=== PATIENT | female | born 1950 | race Two or more races ===

== ENCOUNTER → 2017-05-30 | Day surgery (SDC) | payer BC ==
--- NOTE | 2017-05-31 14:20 | PATH ---
Cytology Non-Gynecological Report Patient Name: KESHAV SMITH [facility]. Rec. #: [id number] /Age/Gender: 1950 (Age: 66) / F Account: [id number] Location: RADIOLOGY Taken: 05/30/2017 Received: 05/30/2017 Reported: 05/31/2017 Physicians: Shaneka Brumfield M.D. Specimen(s) Received RIGHT THYROID FNA Clinical History Right thyroid nodule, 1.91 x 1.10 x 1.09 cm Final Diagnosis THYROID GLAND, RIGHT LOBE, US GUIDED FINE NEEDLE ASPIRATION BIOPSY: SATISFACTORY FOR EVALUATION. NO MALIGNANT CELLS IDENTIFIED. CONSISTENT WITH NODULAR GOITER (BENIGN FOLLICULAR NODULE, BETHESDA CATEGOY II, BENIGN), SEE COMMENT. Comment: The smears and the cell block show scattered clusters of bland appearing follicular epithelial cells arranged in mixed macro- and microfollicles. Colloid is present. Electronically Signed Salo Rodriguez M.D. Gross Description Received are four air dried smears, four smears in 95% alcohol, and 20 cc of bloody fluid in formalin. Four diff-quik stained slides, four Pap stained slides and one cell block are made.
== END | disposition home or self-care (01) ==
LOC: JRADIR 08:40
PROVIDERS: ATTEND Internal Medicine Endocrinology, Diabetes & Metabolism
PROC: 0G9H3ZX Drainage of Right Thyroid Gland Lobe, Percutaneous Approach, Diagnostic (ICD-10-PCS; principal; 2017-05-30)
PROC: BG44ZZZ Ultrasonography of Thyroid Gland (ICD-10-PCS; 2017-05-30)
DX: E04.1 Nontoxic single thyroid nodule (principal)
CPT/HCPCS: 76942; 88173; 88305-TC

== ENCOUNTER 2018-12-29 19:28 | Emergency (ER) | payer BC ==
[2018-12-29] MEDS ORDERED: ACETAMINOPHEN 1000 MG/100 ML VIAL (NON FORMULARY) IVPB ONE (20:12)
[2018-12-29] MEDS ORDERED: ACETAMINOPHEN INJECTION 100 ML IVPB ONE (20:29)
[2018-12-29] MEDS ORDERED: SODIUM CHLORIDE 1,000 ML IV STA (20:37)
[2018-12-29 20:49] LABS: BASO % 0.7 % (0-2.0); EOS % 1.5 % (0-4.5); HEMATOCRIT 42.7 % (32.4-45.2); HEMOGLOBIN 14.7 GM/dL (10.7-15.3); LYMPH % 15.7 % (8-40); MCH 32.3 pg (25.7-33.7); MCHC 34.5 g/dl (32.0-36.0); MEAN CELL VOLUME 93.6 fl (80-96); MEAN PLT VOLUME 8.7 fl (7.5-11.1); MONO % 11.8 % (3.8-10.2); NEUT % 70.3 % (42.8-82.8); PLATELET COUNT 338 K/MM3 (134-434); RBC 4.56 M/mm3 (3.60-5.2); RDW 12.8 % (11.6-15.6); WHITE BLOOD COUNT 9.2 K/mm3 (4.0-10.0)
[2018-12-29] MEDS ORDERED: ONDANSETRON 4 MG/2 ML VIAL IVPB ONE (20:51)
[2018-12-29] MEDS ORDERED: morphine CARPU-JECT 4 MG/1 ML DISP.SYRIN IVPUSH ONE (20:51)
--- NOTE | 2018-12-29 20:56 | PDOC ---
Attending Attestation - [facility] HPI: 12/29/18 21:08 The patient is a 68 year old female, with significant past medical history of asthma, hysterectomy, partial thyroidectomy, who presents to the emergency department with left lower quadrant pain beginning this morning. The patient states this is the first time she experienced this pain prompting the ED visit. The patient denies chest pain, shortness of breath, headache and dizziness. Denies fever, chills, nausea, vomit, diarrhea and constipation. Denies dysuria, frequency, urgency and hematuria. Allergies: NKA Documentation prepared by James Diane, acting as bilingual medical receptionist for Antonio Cloud MD. - Physicial Exam PE: 12/29/18 21:08 GENERAL: Awake, alert, and fully oriented, in no acute distress HEAD: No signs of trauma EYES: PERRLA, EOMI, sclera anicteric, conjunctiva clear ENT: Auricles normal inspection, hearing grossly normal, nares patent, oropharynx clear without exudates. Moist mucosa NECK: Normal ROM, supple, no lymphadenopathy, JVD, or masses ABDOMEN: (+) Tenderness to palpation left lower quadrant. No rebound or guarding. Soft, normoactive bowel sounds. No masses EXTREMITIES: Normal range of motion, no edema. No clubbing or cyanosis. No cords, erythema, or tenderness NEUROLOGICAL: Cranial nerves II through XII intact. Normal speech. SKIN: Warm, Dry, normal turgor, no rashes or lesions noted. <James Diane - Last Filed: 12/29/18 21:07> - Resident Resident Name: Wendi Nicole - ED Attending Attestation I have performed the following: I have examined & evaluated the patient, The case was reviewed & discussed with the resident, I agree w/resident's findings & plan, Exceptions are as noted - Medical Decision Making 12/29/18 20:56 A portion of this note was documented by scribe services under my direction. I have reviewed the details of the note, within reason, and agree with the documentation with the following case summary and management plan written by me. Patient treated in the ED. Nursing notes are reviewed and incorporated into the medical decision-making. Vital signs reviewed. Peripheral IV access obtained by the nurse, laboratory studies are drawn and sent, reviewed and interpreted by myself. Vital Signs Temp Pulse Resp BP Pulse Ox 99 F 97 H 18 137/89 98 12/29/18 19:28 12/29/18 19:28 12/29/18 19:28 12/29/18 19:28 12/29/18 19:28 68 year old female with past medical history of asthma, hysterectomy, partial thyroidectomy presents with left lower quadrant pain since this morning. Patient denies fevers or chills. No nausea or vomiting or diarrhea or dysuria. First-time episode. Patient denies prior history of diverticulitis. We'll need to rule out diverticulitis, colitis. We'll obtain labs, urinalysis, CAT scan and pelvis. r/o Cystitis. Reassess. 12/29/18 23:05 CBC, BMP 12/29/18 20:22 12/29/18 20:22 CMP Sodium 141 mmol/L (136-145) 12/29/18 20:22 Potassium 4.2 mmol/L (3.5-5.1) 12/29/18 20:22 Chloride 105 mmol/L (98-107) 12/29/18 20:22 Carbon Dioxide 32 mmol/L (21-32) 12/29/18 20:22 Anion Gap 5 MMOL/L (8-16) L 12/29/18 20:22 BUN 12 mg/dL (7-18) 12/29/18 20:22 Creatinine 0.5 mg/dL (0.55-1.3) L 12/29/18 20:22 Creat Clearance w eGFR > 60 (>60) 12/29/18 20:22 Random Glucose 97 mg/dL (74-106) 12/29/18 20:22 Lactic Acid 1.3 mmol/L (0.4-2.0) 12/29/18 20:22 Calcium 8.6 mg/dL (8.5-10.1) 12/29/18 20:22 Total Bilirubin 0.4 mg/dL (0.2-1) 12/29/18 20:22 AST 23 U/L (15-37) 12/29/18 20:22 ALT 25 U/L (13-61) 12/29/18 20:22 Alkaline Phosphatase 94 U/L (45-117) 12/29/18 20:22 Total Protein 7.4 g/dl (6.4-8.2) 03/01/19 20:22 Albumin 3.4 g/dl (3.4-5.0) 12/29/18 20:22 Lipase 101 U/L (73-393) 12/29/18 20:22 Urine Test Results Urine Color Ltyellow 12/29/18 18:50 Urine Appearance Clear 12/29/18 18:50 Urine pH 9.0 (5.0-8.0) H 12/29/18 18:50 Ur Specific [place] 1.016 (1.010-1.035) 12/29/18 18:50 Urine Protein Negative (NEGATIVE) 12/29/18 18:50 Urine Glucose (UA) Negative (NEGATIVE) 12/29/18 18:50 Urine Ketones Negative (NEGATIVE) 12/29/18 18:50 Urine Blood Negative (NEGATIVE) 12/29/18 18:50 Urine Nitrite Negative (NEGATIVE) 12/29/18 18:50 Urine Bilirubin Negative (<2.0 mg/dL) 12/29/18 18:50 Ur Leukocyte Esterase Negative (NEGATIVE) 12/29/18 18:50 CT shows uncomplicated acute diverticulitis. Will d/c with cipro and flagyl. <Antonio Cloud - Last Filed: 12/29/18 23:06>
[2018-12-29] MEDS ORDERED: ONDANSETRON 4 MG/2 ML VIAL ONE (21:07)
[2018-12-29] MEDS ORDERED: morphine SULFATE 4 MG/ML VIAL ONE (21:07)
[2018-12-29 21:09] LABS: URINE APPEARANCE CLEAR; URINE BILIRUBIN NEGATIVE (<2.0 mg/dL); URINE COLOR LTYELLOW; URINE GLUCOSE (UA) NEGATIVE (NEGATIVE); URINE KETONE NEGATIVE (NEGATIVE); URINE LEUK ESTERASE NEGATIVE (NEGATIVE); URINE NITRITE NEGATIVE (NEGATIVE); URINE PROTEIN NEGATIVE (NEGATIVE); URINE UROBILINOGEN NEGATIVE mg/dL (0.2-1.0)
[2018-12-29 21:19] LABS: ALBUMIN 3.4 g/dl (3.4-5.0); ALK PHOS 94 U/L (45-117); ANION GAP 5 MMOL/L (8-16); BILIRUBIN,TOTAL 0.4 mg/dL (0.2-1); BLOOD UREA NITROGEN 12 mg/dL (7-18); CALCIUM 8.6 mg/dL (8.5-10.1); CHLORIDE 105 mmol/L (98-107); CO2 32 mmol/L (21-32); CREATININE 0.5 mg/dL (0.55-1.3); GLUCOSE,RANDOM 97 mg/dL (74-106); POTASSIUM 4.2 mmol/L (3.5-5.1); SGOT/AST 23 U/L (15-37); SGPT/ALT 25 U/L (13-61); SODIUM 141 mmol/L (136-145); TOT PROT 7.4 g/dl (6.4-8.2)
[2018-12-29 21:40] VITALS: BP 137/89; PULSE 97; TEMP 99; BMI 30.1
--- NOTE | 2018-12-29 21:45 | PDOC ---
History of Present Illness - General Chief Complaint: Pain, Acute Stated Complaint: ABDOMINAL PAIN Time Seen by Provider: 12/29/18 19:56 History Source: Patient Exam Limitations: Language Barrier - History of Present Illness Initial Comments: 12/29/18 21:36 Pt is a 68yo F with PMH of Asthma, Uterine Fibroids s/p Hysterectomy "many years ago", Partial Thyroidectomy presenting to ED with LLQ abdominal pain that started this morning. Pt states that she had the pain and needed to have a bowel movement. The pain worsened while she was having a BM. She states the pain is on the left side, does not radiate, feels like pressure, associated with nausea and chills. She denies diarrhea, bloody stools, vomiting, chest pain , SOB, fevers, urinary symptoms. Has not had pain like this before. PMD: Lissette PMH: see hpi PSH: see hpi Meds: none Allergies: nkda Social: denies Past History - Past Medical History Allergies/Adverse Reactions: Allergies Allergy/AdvReac Type Severity Reaction Status Date / Time No Known Allergies Allergy Verified 12/29/18 19:51 Home Medications: Ambulatory Orders Ciprofloxacin [Cipro (Restricted To Id)] 500 mg PO Q12H #14 tablet 12/29/18 metroNIDAZOLE [Flagyl -] 500 mg PO TID #21 tablet 12/29/18 Asthma: Yes COPD: No - Immunization History Td Vaccination: Yes Immunization Up to Date: Yes - Suicide/Smoking/Psychosocial Hx Smoking Status: No Smoking History: Never smoked Have you smoked in the past 12 months: No Number of Cigarettes Smoked Daily: 0 Information on smoking cessation initiated: No Hx Alcohol Use: No Drug/Substance Use Hx: No Substance Use Type: None *Physical Exam - Vital Signs Last Vital Signs Temp Pulse Resp BP Pulse Ox 99 F 97 H 18 137/89 98 12/29/18 19:28 12/29/18 19:28 12/29/18 19:28 12/29/18 19:28 12/29/18 19:28 Moderate Sedation - Procedure Monitoring Vital Signs: Procedure Monitoring Vital Signs Temperature 99 F 12/29/18 19:28 Pulse Rate 97 H 12/29/18 19:28 Respiratory Rate 18 12/29/18 19:28 Blood Pressure 137/89 12/29/18 19:28 O2 Sat by Pulse Oximetry (%) 98 12/29/18 19:28 ED Treatment Course - LABORATORY CBC & Chemistry Diagram: 12/29/18 20:22 12/29/18 20:22 - ADDITIONAL ORDERS Additional order review: Laboratory Results 12/29/18 12/29/18 12/29/18 20:22 20:22 18:50 Sodium 141 Potassium 4.2 Chloride 105 Carbon Dioxide 32 Anion Gap 5 L BUN 12 Creatinine 0.5 L Creat Clearance w eGFR > 60 Random Glucose 97 Calcium 8.6 Total Bilirubin 0.4 AST 23 ALT 25 Alkaline Phosphatase 94 Total Protein 7.4 Albumin 3.4 Lipase 101 Urine Color Ltyellow Urine Appearance Clear Urine pH 9.0 H Ur Specific [place] 1.016 Urine Protein Negative Urine Glucose (UA) Negative Urine Ketones Negative Urine Blood Negative Urine Nitrite Negative Urine Bilirubin Negative Urine Urobilinogen Negative Ur Leukocyte Esterase Negative 12/29/18 20:22 RBC 4.56 MCV 93.6 MCHC 34.5 RDW 12.8 MPV 8.7 Neutrophils % 70.3 D Lymphocytes % 15.7 D Monocytes % 11.8 H D Eosinophils % 1.5 D Basophils % 0.7 D - RADIOLOGY Radiology Studies Ordered: Category Date Time Status ABDOMEN & PELVIS CT WITH CONTR [CT] Stat CT Scan 12/29/18 21:17 Ordered - Medications Given in the ED: ED Medications Discontinued Medications Generic Name Dose Route Start Last Admin Trade Name Darin PRN Reason Stop Dose Admin Acetaminophen 1,000 mg 12/29/18 20:12 12/29/18 20:34 Ofirmev Injection - IVPB 12/29/18 20:13 1,000 mg ONCE ONE Administration Sodium Chloride 1,000 mls @ 1,000 mls/hr 12/29/18 20:37 12/29/18 20:50 Normal Saline - IV 12/29/18 21:36 1,000 mls/hr ASDIR STA Administration Morphine Sulfate 4 mg 12/29/18 20:51 12/29/18 21:12 Morphine Injection - IVPUSH 12/29/18 20:52 4 mg ONCE ONE Administration Ondansetron HCl 4 mg 12/29/18 20:51 12/29/18 21:12 Zofran Injection IVPB 12/29/18 20:52 4 mg ONCE ONE Administration Medical Decision Making - Medical Decision Making 12/29/18 21:45 Pt is a 68yo F with PMH of Asthma, Uterine Fibroids s/p Hysterectomy "many years ago", Partial Thyroidectomy presenting to ED with LLQ abdominal pain that started this morning. Pt states that she had the pain and needed to have a bowel movement. The pain worsened while she was having a BM. She states the pain is on the left side, does not radiate, feels like pressure, associated with nausea and chills. She denies diarrhea, bloody stools, vomiting, chest pain , SOB, fevers, urinary symptoms. Has not had pain like this before. Vitals: wnl PE: LLQ tenderness, no rebound, negative rosving. No flank pain. No masses. Ddx includes but not limited to diverticulitis, sbo, incarcerated hernia, AAA, nephrolithiasis, UTI *DC/Admit/Observation/Transfer Diagnosis at time of Disposition: Diverticulitis - Discharge Dispostion Disposition: HOME Condition at time of disposition: Improved - Prescriptions Prescriptions: Ciprofloxacin [Cipro (Restricted To Id)] 500 mg PO Q12H #14 tablet metroNIDAZOLE [Flagyl -] 500 mg PO TID #21 tablet - Referrals Referrals: Clarence Villeda MD [Primary Care Provider] - Mal Bhatti MD [Staff Physician] - - Patient Instructions Printed Discharge Instructions: DI for Diverticulitis Additional Instructions: You were seen in the emergency room today for abdominal pain. The blood tests were normal. The CT scan showed an infection in part of your colon. This is called diverticulitis. The treatment is to take antibiotics. A dose was given to you here. Two prescriptions were sent to your pharmacy. Please take as directed. Make sure you drink clear fluids. Make sure you keep yourself well hydrated. You can take Tylenol or ibuprofen for the pain as needed. I recommend that you make an appointment with your doctor next week, preferably on Tuesday. I also recommend seeing a GI doctor. Dr. Bhatti . Come back to the emergency room if pain gets worse, there is blood in the stool , you develop fevers, you start vomiting, or if any new concerning symptom develops. Thank you - Post Discharge Activity
[2018-12-29] MEDS ORDERED: CIPROFLOXACIN 500 MG TABLET (RESTRICTED TO ID) PO ONE (23:05)
[2018-12-29] MEDS ORDERED: metroNIDAZOLE 500 MG TABLET PO ONE (23:05)
--- NOTE | 2019-01-02 13:58 | EKG ---
Test Reason : Blood Pressure : / mmHG Vent. Rate : 089 BPM Atrial Rate : 089 BPM P-R Int : 140 ms QRS Dur : 116 ms QT Int : 400 ms P-R-T Axes : 063 -33 018 degrees QTc Int : 486 ms NORMAL SINUS RHYTHM LEFT AXIS DEVIATION LEFT VENTRICULAR HYPERTROPHY WITH QRS WIDENING T WAVE ABNORMALITY, CONSIDER ANTERIOR ISCHEMIA ABNORMAL ECG WHEN COMPARED WITH ECG OF 19-NOV-2012 10:44, RIGHT BUNDLE BRANCH BLOCK IS NO LONGER PRESENT Confirmed by MD Allen, Fredy ([id number]) on 01/02/2019 1:57:40 PM Referred By: Confirmed By:Fredy Villa MD
== END 2018-12-30 00:07 | disposition home or self-care (01) ==
LOC: JER 19:28
PROC: 3E0337Z Introduction of Electrolytic and Water Balance Substance into Peripheral Vein, Percutaneous Approach (ICD-10-PCS; principal; 2018-12-29)
PROC: 3E033NZ Introduction of Analgesics, Hypnotics, Sedatives into Peripheral Vein, Percutaneous Approach (ICD-10-PCS; 2018-12-29)
PROC: 3E033NZ Introduction of Analgesics, Hypnotics, Sedatives into Peripheral Vein, Percutaneous Approach (ICD-10-PCS; 2018-12-29)
PROC: 3E033GC Introduction of Other Therapeutic Substance into Peripheral Vein, Percutaneous Approach (ICD-10-PCS; 2018-12-29)
DX: K57.92 Diverticulitis of intestine, part unspecified, without perforation or abscess without bleeding (principal); Z87.09 Personal history of other diseases of the respiratory system; Z87.42 Personal history of other diseases of the female genital tract; E89.0 Postprocedural hypothyroidism
CPT/HCPCS: 36415; 74177-TC; 80053; 81003; 83605; 83690; 85025; 93005; 93010; 99284-25; J0131; J7030

== ENCOUNTER 2019-01-01 11:31 | Inpatient (IN) | payer BC ==
--- NOTE | 2019-01-01 12:08 | PDOC ---
History of Present Illness - General Chief Complaint: Pain, Acute Stated Complaint: LOWER BACK PAIN Time Seen by Provider: 01/01/19 12:07 - History of Present Illness Initial Comments: 01/01/19 12:07 Malaysian speaking only pt. Sole Dyer [id number] used during history taking. 68 yo female with PMH asthma, fibroids s/p hysterectomy many years back, partial thyroidectomy, presents with worsening LLQ pain following recent visit and dx of diverticulitis. She was seen by Dr. Bhatti as an outpatient who sent her to the emergency room for further evaluation with noncontrast CT Abdomen/ Pelvis to evaluate for possible perforation with worsening pain on outpatient antibiotics. He also recommended admission for IV Rocephin and Flagyl. She endorses a lot of chills recently. States she feels constipated. She does endorse one small hard bowel movement this morning. Denies any blood in her stool. Endorses nausea, however she denies any vomiting. Past History - Past Medical History Allergies/Adverse Reactions: Allergies Allergy/AdvReac Type Severity Reaction Status Date / Time No Known Allergies Allergy Verified 01/01/19 12:33 Home Medications: Ambulatory Orders Ciprofloxacin [Cipro (Restricted To Id)] 500 mg PO Q12H #14 tablet 12/29/18 metroNIDAZOLE [Flagyl -] 500 mg PO TID #21 tablet 12/29/18 Pantoprazole Sodium [Protonix -] 40 mg PO DAILY 01/01/19 Asthma: Yes COPD: No GI Disorders: Yes (DIVERTICULOSIS) - Immunization History Td Vaccination: Yes Immunization Up to Date: Yes - Suicide/Smoking/Psychosocial Hx Smoking Status: No Smoking History: Never smoked Have you smoked in the past 12 months: No Number of Cigarettes Smoked Daily: 0 Information on smoking cessation initiated: No Hx Alcohol Use: No Drug/Substance Use Hx: No Substance Use Type: None Review of Systems - Review of Systems Able to Perform ROS?: Yes Constitutional: Yes: Chills HEENTM: No: Blurred Vision Respiratory: No: Cough, Shortness of Breath Cardiac (ROS): No: Chest Pain ABD/GI: Yes: Abd. Pain w/ defecation, Constipated, Nausea. No: Blood Streaked Bowels, Diarrhea, Rectal Bleeding, Vomiting : No: Burning, Dysuria Musculoskeletal: No: Back Pain, Joint Pain *Physical Exam - Vital Signs Last Vital Signs Temp Pulse Resp BP Pulse Ox 98.1 F 75 18 146/86 96 01/01/19 11:37 01/01/19 11:37 01/01/19 11:37 01/01/19 11:37 01/01/19 11:37 - Physical Exam Comments: 01/01/19 12:07 GEN: A&O, mild acute distress likely secondary to pain HEENT: PERRL NECK: supple, no lymphadenopathy HEART: RRR, no murmurs LUNGS: CTA b/l ABDOMEN: Soft, significant tenderness located in the LLQ. Normoactive bowel sounds EXTREMITIES: no peripheral edema Moderate Sedation - Procedure Monitoring Vital Signs: Procedure Monitoring Vital Signs Temperature 98.1 F 01/01/19 11:37 Pulse Rate 75 01/01/19 11:37 Respiratory Rate 18 01/01/19 11:37 Blood Pressure 146/86 01/01/19 11:37 O2 Sat by Pulse Oximetry (%) 96 01/01/19 11:37 ED Treatment Course - LABORATORY CBC & Chemistry Diagram: 01/01/19 12:58 01/01/19 12:27 Medical Decision Making - Medical Decision Making 01/01/19 12:36 68 yo female with recent diverticulitis dx failed outpatient treatment with Abx. Followed up with GI who recommended returning to the ER for worsening clinical exam/pain. Case discussed by other ED provider. GI recommends noncontrast CT scan Abdomen and Admission for IV Rocephin and Flagyl. CBC, CMP pending IV insert, 1L LR bolus, [address] abd/pelv noncontrast to r/o perforation. Will reassess following morphine and fluid bolus 01/01/19 15:02 CBC, CMP wnl Pain improved with 4 mg Morphine however patient still complaining of significant pain and some nausea. CT Abd/Pelv with no significant change other than 2 cm x 0.3 cm tubular shaped density in the upper rectum. Will give Zofran for nausea, Mag Citrate for constipation, and IV tylenol for continued pain Will place call to discuss possibility of admission as patient still having significant pain following 3 days PO Abx outpatient. *DC/Admit/Observation/Transfer Diagnosis at time of Disposition: Diverticulitis - Discharge Dispostion Condition at time of disposition: Stable Decision to Admit order: Yes - Referrals Referrals: Clarence Villeda MD [Staff Physician] - - Patient Instructions - Post Discharge Activity
[2019-01-01] MEDS ORDERED: morphine CARPU-JECT 4 MG/1 ML DISP.SYRIN IVPUSH ONE (12:28)
[2019-01-01] MEDS ORDERED: LACTATED RINGERS SOLUTION 1000 ML INFUS.BAG IV ONE (12:28)
[2019-01-01] MEDS ORDERED: morphine SULFATE 4 MG/ML VIAL ONE (12:36)
--- NOTE | 2019-01-01 12:44 | PDOC ---
Attending Attestation - Resident Resident Name: Issa Sams - ED Attending Attestation I have performed the following: I have examined & evaluated the patient, The case was reviewed & discussed with the resident, I agree w/resident's findings & plan, Exceptions are as noted - HPI HPI: 01/01/19 12:43 68y F hx of recently dx of diverticultiis dx in the ER 2 days ago, had a ct c/w diverticulitis was started on abx and plan was for outpatient treatment with GI fu. Pt went to fu with GI today and was referred back to the ED for evaluation for worsening abdmoinal pain for reevaluation, ivabx and repeat ct with concern for perforation vs abcess. Pt note the pain feels more severe, associated with subjective chills without fever, as well as nausea w/o vomiting. pt notes some constipation. denies any cp, sob, back pain, urinary sypmtoms pt has been complaint with her abx - Physicial Exam PE: 01/01/19 14:00 General: no acuted istress LUNGS: Breath sounds equal, clear to auscultation bilaterally. No wheezes, no rhonchi, no rales. HEART: Regular rate and rhythm, normal S1 and S2 without murmur, rub or gallop. ABDOMEN: Soft, moderate LLQ tenderness,voluntary guarding, no rebound EXTREMITIES: Normal range of motion, NEUROLOGICAL: No facial assymetry, Normal speech, moving all 4 extremities spontaneously and symmetrically PSYCH: Normal mood, normal affect. SKIN: Warm, Dry, normal turgor, - Medical Decision Making 01/01/19 14:01 will obtain repeat lab work repeat ct to eval for compliations of diverticulitis morphine for pain zofran for nausea 01/01/19 14:47 The patient's labs were reviewed there is no significant change in her white count. The patient's CT of abdomen reveals no significant changes, there is a questionable foreign body was not seen prior. Heart Score/ECG Review - ECG Impressions Comment:: 01/01/19 14:02 Twelve-lead EKG was performed and reviewed by me. There is normal sinus rhythm with a normal rate. Rate of 67 Right Bundle-branch block No ST changes suggestive of acute ischemia
[2019-01-01 13:17] LABS: EOS % 1.8 % (0-4.5); HEMATOCRIT 45.6 % (32.4-45.2); HEMOGLOBIN 15.7 GM/dL (10.7-15.3); MCH 32.3 pg (25.7-33.7); MCHC 34.5 g/dl (32.0-36.0); MEAN CELL VOLUME 93.7 fl (80-96); MEAN PLT VOLUME 8.7 fl (7.5-11.1); MONO % 17.3 % (3.8-10.2); NEUT % 56.9 % (42.8-82.8); PLATELET COUNT 432 K/MM3 (134-434); RBC 4.86 M/mm3 (3.60-5.2); RDW 12.7 % (11.6-15.6); WHITE BLOOD COUNT 6.3 K/mm3 (4.0-10.0)
[2019-01-01 13:57] LABS: ALBUMIN 3.2 g/dl (3.4-5.0); ALK PHOS 78 U/L (45-117); ANION GAP 6 MMOL/L (8-16); BILIRUBIN,TOTAL 0.3 mg/dL (0.2-1); BLOOD UREA NITROGEN 12 mg/dL (7-18); CALCIUM 8.9 mg/dL (8.5-10.1); CHLORIDE 102 mmol/L (98-107); CO2 32 mmol/L (21-32); CREATININE 0.9 mg/dL (0.55-1.3); GLUCOSE,RANDOM 77 mg/dL (74-106); POTASSIUM 4.1 mmol/L (3.5-5.1); SGOT/AST 24 U/L (15-37); SGPT/ALT 31 U/L (13-61); SODIUM 140 mmol/L (136-145); TOT PROT 8.2 g/dl (6.4-8.2)
[2019-01-01 14:06] LABS: INR 1.03 (0.83-1.09); PROTHROMBIN TIME (PATIENT) 12.2 SEC (9.7-13.0)
[2019-01-01] MEDS ORDERED: ONDANSETRON 4 MG/2 ML VIAL IVPUSH ONE (14:50)
[2019-01-01] MEDS ORDERED: MAGNESIUM CITRATE 300 ML BOTTLE PO ONE (14:51)
[2019-01-01] MEDS ORDERED: ACETAMINOPHEN 1000 MG/100 ML VIAL (NON FORMULARY) IVPB ONE (14:54)
[2019-01-01] MEDS ORDERED: ACETAMINOPHEN INJECTION 100 ML IVPB ONE (15:00)
[2019-01-01] MEDS ORDERED: ONDANSETRON 4 MG/2 ML VIAL ONE (15:00)
[2019-01-01] MEDS ORDERED: MAGNESIUM CITRATE 300 ML BOTTLE ONE (15:00)
[2019-01-01] MEDS ORDERED: CEFTRIAXONE 1,000 MG in DEXTROSE 5%-WATER - 50 ML IVPB ONE (15:17)
[2019-01-01] MEDS ORDERED: CEFTRIAXONE 1 GM/50 ML BAG ONE (15:34)
--- NOTE | 2019-01-01 15:39 | HP ---
Admitting History and Physical - Primary Care Physician PCP: Denisse Mclaughlin - Admission Chief Complaint: came in for abdominal pain sent in by dr alvarez History of Present Illness: 68 yo female with PMH asthma, fibroids s/p hysterectomy many years back, partial thyroidectomy, presents with worsening LLQ pain following recent visit and dx of diverticulitis. She was seen by Dr. Alvarez as an outpatient who sent her to the emergency room for further evaluation with noncontrast CT Abdomen/ Pelvis to evaluate for possible perforation with worsening pain on outpatient antibiotics. He also recommended admission for IV Rocephin and Flagyl. She endorses a lot of chills recently. States she feels constipated. She does endorse one small hard bowel movement this morning. Denies any blood in her stool. Endorses nausea, however she denies any vomiting. patient has been taking cipro and flagyl at home was given by ER when she came a few days ago for similar complains History Source: Medical Record Limitations to Obtaining History: Language Barrier - Smoking History Smoking history: Never smoked Have you smoked in the past 12 months: No Aproximately how many cigarettes per day: 0 - Alcohol/Substance Use Hx Alcohol Use: No Home Medications - Allergies Allergies/Adverse Reactions: Allergies Allergy/AdvReac Type Severity Reaction Status Date / Time No Known Allergies Allergy Verified 01/01/19 12:33 - Home Medications Home Medications: Ambulatory Orders Ciprofloxacin [Cipro (Restricted To Id)] 500 mg PO Q12H #14 tablet 12/29/18 metroNIDAZOLE [Flagyl -] 500 mg PO TID #21 tablet 12/29/18 Pantoprazole Sodium [Protonix -] 40 mg PO DAILY 01/01/19 Review of Systems - Review of Systems Gastrointestinal: reports: Abdominal Pain Physical Examination Vital Signs: Vital Signs Temperature 98.1 F 01/01/19 12:11 Pulse Rate 75 01/01/19 12:11 Respiratory Rate 18 01/01/19 12:11 Blood Pressure 146/86 01/01/19 12:11 O2 Sat by Pulse Oximetry (%) 96 01/01/19 12:11 Constitutional: Yes: Calm Cardiovascular: Yes: Regular Rate and Rhythm, S1, S2 Respiratory: Yes: CTA Bilaterally Gastrointestinal: Yes: Tenderness (in LLQ) Edema: No Neurological: Yes: Alert Labs: CBC, BMP 01/01/19 12:58 01/01/19 12:27 Imaging - Results Cat Scan: Report Reviewed (acute uncomplicated sigmoid diverticulitis) Problem List - Problems (1) Diverticulitis Assessment/Plan: NPO ivf morphine zofran iv abx rocephin flagyl GI consult dvtppx Code(s): K57.92 - DVTRCLI OF INTEST, PART UNSP, W/O PERF OR ABSCESS W/O BLEED
[2019-01-01] MEDS ORDERED: ONDANSETRON 4 MG/2 ML VIAL IVPUSH PRN (15:42)
[2019-01-01] MEDS ORDERED: MORPHINE SULFATE 2 MG/ML VIAL IVPUSH PRN ×2 (15:42)
[2019-01-01] MEDS ORDERED: DEXTROSE 5%-0.45% SALINE 1,000 ML IV SCH (15:45)
[2019-01-01 18:51] VITALS: BMI 29.9
[2019-01-01] MEDS: DEXTROSE 5%-0.45% SALINE 1,000 ML IV SCH (19:00)
[2019-01-01] MEDS: HEPARIN NA (PORCINE) 5,000 UNITS/ML 1ML VIAL SQ SCH (23:19)
[2019-01-02] MEDS: PANTOPRAZOLE SODIUM 40 MG VIAL IVPUSH SCH (05:45)
[2019-01-02 07:30] LABS: INR 1.11 (0.83-1.09); PROTHROMBIN TIME (PATIENT) 13.1 SEC (9.7-13.0)
--- NOTE | 2019-01-02 07:31 | CON.GI ---
Consult Consult Specialty:: GI Referred by:: Dr. Graves Reason for Consultation:: Diverticulitis - History of Present Illness Chief Complaint: LLQ pain History of Present Illness: Patient is a 68 y/o female with past medical history of asthma, fibroids s/p hysterectomy, partial thyroidectomy. I was consulted to evaluate patient for complaints of LLQ pain. Patient complaints of LLQ pain accompanied with nausea and one episode of "black" colored diarrhea. Patient denies fevers, chills, night awakening by diarrhea, or recent travel. Most recent colonoscopy 3 months ago. Abdomen and Pelvic CT scan shows acute uncomplicated sigmoid diverticulitis, interval appearanceof tubular shape 2 x 0.3cm intraluminal density within upper rectum adjacent to rectosigmoid junction. - History Source History Provided By: Patient Limitations to Obtaining History: No Limitations - Past Medical History LEATHER GRADER: No: Alzheimer's, CVA, Dementia, Migraine, Multiple Sclerosis, Peripheral Neuropathy, Parkinson's, Seizure, Syncope, TIA, Vertigo, Other Cardio/Vascular: No: AFIB, Aneurysm, Aortic Insufficiency, Aortic Stenosis, CAD , CHF, Deep Vein Thrombosis, HTN, Hyperlipdemia, CA, Mitral Insufficiency, Mitral Stenosis, Murmur, Pulmonary Hypertension, Other Pulmonary: Yes: Asthma. No: Bronchitis, Cancer, COPD, O2 Dependent, Pneumonia, Previously Intubated, Pulmonary Embolus, Pulmonary Fibrosis, Sleep Apnea, Other Gastrointestinal: Yes: Diverticulitis. No: Ascites, Cancer, Constipation, Crohn 's Disease, Diverticulosis, Esophageal Varices, Gastritis, GERD, GI Bleed, Hemorrhoids, Hiatal Hernia, Inflamatory Bowel Disease, Irritable Bowel Disease, Pancreatitis, Peptic Ulcer Disease, Ulcerative Colitis, Other Hepatobiliary: No: Cirrhosis, Cholelithiasis, Cholecystitis, Choledocholithiasis , Hepatitis A, Hepatitis B, Hepatitis C, Other Renal/: No: Renal Failure, Renal Inusuff, BPH, Cancer, Hematuria, Hemodialysis , Neurogenic Bladder, Renal Calculi, UTI, Other Reproductive: No: Ectopic , Endometriosis, Fibroids, PID, Polycystic Ovary Syndrome, Postmenopausal, Other Heme/Onc: No: Anemia, B12 Deficiency, Bleeding Disorder, Cancer, Current Chemotherapy, Current Radiation Therapy, Hemochromatosis, Hypercoaguable State, Myeloproliferative Synd, Sickle Cell Disease, Sickle Cell Trait, Thrombocytopenia, Other Infectious Disease: No: AIDS, C-Diff, Herpes Zoster, HIV, MRSA, STD's, Tuberculosis, VREF, Other Psych: No: Addictions, Anxiety, Bipolar, Depression, Panic, Psychosis, Schizophrenia, Other Musculoskeletal: No: Bursitis, Chronic low back pain, Hemiparesis, Hemiplegia, Osteoarthritis, Paraplegia, Other Rheumatology: No: Fibromyalgia, Gout, Lupus, Rheumatoid Arthritis, Sarcoidosis, Vasculitis, Other ENT: No: Allergic Rhinitis, Sinusitis, Other Endocrine: No: [place]'s Disease, Kellogg's Disease, Diabetes Insipidus, Diabetes Mellitus, Hyperparathyroidism, Hyperthyroidism, Hypothyroidism, Osteopenia, SIADH, Other Dermatology: No: Basal Cell, Cellulitis, Eczema, Melanoma, Psoriasis, Squamous Cell, Other - Past Surgical History Past Surgical History: Yes: Colonoscopy (3 months ago), Hysterectomy - Alcohol/Substance Use Hx Alcohol Use: No - Smoking History Smoking history: Never smoked Have you smoked in the past 12 months: No Aproximately how many cigarettes per day: 0 Home Medications - Allergies Allergies/Adverse Reactions: Allergies Allergy/AdvReac Type Severity Reaction Status Date / Time No Known Allergies Allergy Verified 01/01/19 12:33 - Home Medications Home Medications: Ambulatory Orders Ciprofloxacin [Cipro (Restricted To Id)] 500 mg PO Q12H #14 tablet 12/29/18 metroNIDAZOLE [Flagyl -] 500 mg PO TID #21 tablet 12/29/18 Pantoprazole Sodium [Protonix -] 40 mg PO DAILY 01/01/19 Review of Systems - Review of Systems Constitutional: reports: No Symptoms Eyes: reports: No Symptoms HENT: reports: No Symptoms Neck: reports: No Symptoms Cardiovascular: reports: No Symptoms Respiratory: reports: No Symptoms Gastrointestinal: reports: Abdominal Pain, Melena, Nausea Genitourinary: reports: No Symptoms Breasts: reports: No Symptoms Reported Musculoskeletal: reports: No Symptoms Integumentary: reports: No Symptoms Neurological: reports: No Symptoms Endocrine: reports: No Symptoms Hematology/Lymphatic: reports: No Symptoms Psychiatric: reports: No Symptoms Physical Exam-GI Vital Signs: Vital Signs Temperature 97.8 F 01/02/19 06:00 Pulse Rate 65 01/02/19 06:00 Respiratory Rate 20 01/02/19 06:00 Blood Pressure 148/76 01/02/19 06:00 O2 Sat by Pulse Oximetry (%) 96 01/01/19 21:00 Constitutional: Yes: Well Nourished, No Distress, Calm Eyes: Yes: Conjunctiva Clear HENT: Yes: Atraumatic Cardiovascular: Yes: Regular Rate and Rhythm Respiratory: Yes: Regular, CTA Bilaterally Gastrointestinal Inspection: Yes: WNL. No: Ascites, Distention, Hernia, Scars, Other ...Auscultate: Yes: Normoactive Bowel Sounds. No: Hyperactive Bowel Sounds, Hypoactive Bowel Sounds, No Bowel Sounds, Other ...Palpate: Yes: Soft, Tenderness (LLQ). No: Firm/Rigid, Guarding, Hepatomegaly , Mass, Pulsatile Mass, Splenomegaly, Tenderness, Epigastium, Tenderness, Rebound, Other ...Percussion: Yes: Tympanitic. No: Dullness, Fluid Wave, Other ...Rectal Exam: Yes: Sphincter Tone Normal. No: WNL, Deferred, Erythema, Guaiac Negative, Guaiac Positive, Guaiac Trace, Hemorrhoids/External, Hemorrhoids/Internal, Induration, Inflammation, Mass, Sphincter Tone Poor, Other Neurological: Yes: Alert, Oriented Psychiatric: Yes: Alert, Oriented Labs: INR, PTT INR 1.03 (0.83-1.09) 01/01/19 13:14 Laboratory Results - last 24 hr 01/01/19 01/01/19 01/01/19 12:27 12:58 13:14 WBC 6.3 RBC 4.86 Hgb 15.7 H Hct 45.6 H MCV 93.7 MCH 32.3 MCHC 34.5 RDW 12.7 Plt Count 432 D MPV 8.7 Absolute Neuts (auto) 3.6 Neutrophils % 56.9 Lymphocytes % 23.0 D Monocytes % 17.3 H Eosinophils % 1.8 Basophils % 1.0 Nucleated RBC % 0 PT with INR 12.20 INR 1.03 PTT (Actin FS) Sodium 140 Potassium 4.1 Chloride 102 Carbon Dioxide 32 Anion Gap 6 L BUN 12 Creatinine 0.9 Creat Clearance w eGFR > 60 Random Glucose 77 Calcium 8.9 Total Bilirubin 0.3 AST 24 ALT 31 Alkaline Phosphatase 78 Total Protein 8.2 Albumin 3.2 L Blood Type Antibody Screen 01/01/19 01/02/19 13:14 06:30 WBC RBC Hgb Hct MCV MCH MCHC RDW Plt Count MPV Absolute Neuts (auto) Neutrophils % Lymphocytes % Monocytes % Eosinophils % Basophils % Nucleated RBC % PT with INR 13.10 H INR 1.11 H PTT (Actin FS) 32.9 Sodium Potassium Chloride Carbon Dioxide Anion Gap BUN Creatinine Creat Clearance w eGFR Random Glucose Calcium Total Bilirubin AST ALT Alkaline Phosphatase Total Protein Albumin Blood Type O POSITIVE Antibody Screen Negative Active Medications Generic Name Dose Route Start Last Admin Trade Name Freq PRN Reason Stop Dose Admin Heparin Sodium (Porcine) 5,000 unit 01/01/19 22:00 01/01/19 23:19 Heparin - SQ 5,000 unit BID [facility] Administration Ceftriaxone Sodium 1 gm/ 50 mls @ 100 mls/hr 01/02/19 10:00 Dextrose IVPB DAILY [facility] Protocol Metronidazole 500 mg in 100 mls @ 100 mls/hr 01/01/19 18:00 01/02/19 02:00 Flagyl 500mg Premixed Ivpb - IVPB 100 mls/hr Q8H-IV [facility] Administration Dextrose/Sodium Chloride 1,000 mls @ 125 mls/hr 01/01/19 18:16 01/01/19 19:00 D5-1/2ns - IV 01/04/19 23:44 125 mls/hr ASDIR [facility] Administration Morphine Sulfate 4 mg 01/01/19 15:42 Morphine Sulfate IVPUSH Q4H PRN PAIN LEVEL 7 - 10 Ondansetron HCl 4 mg 01/01/19 15:42 01/01/19 19:00 Zofran Injection IVPUSH 4 mg Q6H PRN Administration NAUSEA AND/OR VOMITING Pantoprazole Sodium 40 mg 01/02/19 06:00 01/02/19 05:45 Protonix Iv IVPUSH 40 mg DAILY@0600 [facility] Administration Imaging - Results Cat Scan: Report Reviewed Problem List - Problems (1) Diverticulitis Assessment/Plan: >Continue with IVF hydration >continue with ceftiaxone and flagyl IVPB >contine NPO status >AFP, CEA CA 19-9, CA 125 Code(s): K57.92 - DVTRCLI OF INTEST, PART UNSP, W/O PERF OR ABSCESS W/O BLEED (2) Melena Assessment/Plan: >stool OB ordered >monitor H/H, currently stable at 13.4/38.3 >transfuse if Hg <8.0 Code(s): K92.1 - MELENA
[2019-01-02 07:33] LABS: ACTIVATED PTT 32.9 SECONDS (25.2-36.5)
[2019-01-02 07:36] LABS: HEMATOCRIT 38.3 % (32.4-45.2); HEMOGLOBIN 13.4 GM/dL (10.7-15.3); MCH 32.4 pg (25.7-33.7); MCHC 35.1 g/dl (32.0-36.0); MEAN CELL VOLUME 92.4 fl (80-96); MEAN PLT VOLUME 8.5 fl (7.5-11.1); PLATELET COUNT 344 K/MM3 (134-434); RBC 4.15 M/mm3 (3.60-5.2); RDW 12.7 % (11.6-15.6); WHITE BLOOD COUNT 4.8 K/mm3 (4.0-10.0)
[2019-01-02 08:20] LABS: ALBUMIN 2.7 g/dl (3.4-5.0); ALK PHOS 74 U/L (45-117); ANION GAP 4 MMOL/L (8-16); BILIRUBIN,TOTAL 0.3 mg/dL (0.2-1); BLOOD UREA NITROGEN 7 mg/dL (7-18); CALCIUM 8.4 mg/dL (8.5-10.1); CHLORIDE 104 mmol/L (98-107); CO2 33 mmol/L (21-32); CREATININE 0.8 mg/dL (0.55-1.3); GLUCOSE,RANDOM 132 mg/dL (74-106); MAGNESIUM 2.5 mg/dL (1.8-2.4); PHOSPHOROUS 3.3 mg/dL (2.5-4.9); POTASSIUM 3.8 mmol/L (3.5-5.1); SGOT/AST 13 U/L (15-37); SGPT/ALT 19 U/L (13-61); SODIUM 141 mmol/L (136-145); TOT PROT 5.5 g/dl (6.4-8.2)
[2019-01-02] MEDS ORDERED: cefTRIAXone SODIUM 1 GM VIAL ONE (09:08)
[2019-01-02] MEDS ORDERED: DEXTROSE 5%-WATER - 50 ML IVPB ONE (09:08)
--- NOTE | 2019-01-02 09:14 | PN ---
Progress Note, Physician - Current Medication List Current Medications: Active Medications Heparin Sodium (Porcine) (Heparin -) 5,000 unit SQ BID [facility] Last Admin: 01/01/19 23:19 Dose: 5,000 unit Ceftriaxone Sodium 1 gm/ (Dextrose) 50 mls @ 100 mls/hr IVPB DAILY [facility]; Protocol Metronidazole (Flagyl 500mg Premixed Ivpb -) 500 mg in 100 mls @ 100 mls/hr IVPB Q8H-IV [facility] Last Admin: 01/02/19 02:00 Dose: 100 mls/hr Dextrose/Sodium Chloride (D5-1/2ns -) 1,000 mls @ 125 mls/hr IV ASDIR [facility] Stop: 01/04/19 23:44 Last Admin: 01/01/19 19:00 Dose: 125 mls/hr Morphine Sulfate (Morphine Sulfate) 4 mg IVPUSH Q4H PRN PRN Reason: PAIN LEVEL 7 - 10 Ondansetron HCl (Zofran Injection) 4 mg IVPUSH Q6H PRN PRN Reason: NAUSEA AND/OR VOMITING Last Admin: 01/01/19 19:00 Dose: 4 mg Pantoprazole Sodium (Protonix Iv) 40 mg IVPUSH DAILY@0600 [facility] Last Admin: 01/02/19 05:45 Dose: 40 mg - Objective Vital Signs: Vital Signs Temperature 97.8 F 01/02/19 06:00 Pulse Rate 65 01/02/19 06:00 Respiratory Rate 20 01/02/19 06:00 Blood Pressure 148/76 01/02/19 06:00 O2 Sat by Pulse Oximetry (%) 96 01/01/19 21:00 Respiratory: Yes: Regular, CTA Bilaterally Gastrointestinal: Yes: Normal Bowel Sounds, Soft, Tenderness (llq) Labs: CBC, BMP 01/02/19 06:30 01/02/19 06:30 INR, PTT INR 1.11 (0.83-1.09) H 01/02/19 06:30 Problem List - Problems (1) Diverticulitis Assessment/Plan: NPO ivf morphine zofran iv abx rocephin flagyl GI consult dvtppx Code(s): K57.92 - DVTRCLI OF INTEST, PART UNSP, W/O PERF OR ABSCESS W/O BLEED (2) Leg pain Assessment/Plan: venous duplex Code(s): M79.606 - PAIN IN LEG, UNSPECIFIED
[2019-01-02] MEDS: HEPARIN NA (PORCINE) 5,000 UNITS/ML 1ML VIAL SQ SCH ×2 (09:29→21:05)
[2019-01-02] MEDS ORDERED: CEFTRIAXONE 1 GM in DEXTROSE 5%-WATER - 50 ML IVPB SCH (10:00)
--- NOTE | 2019-01-02 12:28 | PN ---
Progress Note (short form) - Note Progress Note: ID CONSULT DICTATED ACUTE UNCOMPLICATED SIGMOID DIVERTICULITIS ?INTRALUMINAL FOREIGN BODY OBTAIN BC CONTINUE CEFTRIAXONE/ FLAGYL GI FOLLOW UP
--- NOTE | 2019-01-02 12:58 | CONS ---
DATE OF CONSULTATION: DATE OF DICTATION: 01/02/2019 HISTORY: The patient is a 68-year-old female who is evaluated for acute diverticulitis. The patient developed abdominal pain several days ago for which she was seen in the emergency room on December 29, 2018. A CAT scan of the abdomen and pelvis showed acute, uncomplicated sigmoid diverticulitis. She was discharged on oral ciprofloxacin and Flagyl to be treated as an outpatient. Despite the antibiotic therapy, she developed worsening left lower quadrant abdominal pain. She had presented to her proposal manager writer and was referred to the emergency room for admission and IV antibiotic therapy. At the present time, she complains of left lower quadrant pain. She has nausea but denies vomiting. She states she did have a bowel movement. She complains of pain on defecation and urination. A follow up CAT scan of the abdomen and pelvis was performed and showed acute significant diverticulitis. There was no interval development of perforation or abscess formation. There was, however, an incidental finding of what appears to be an intraluminal foreign body in the rectum. She denies any associated fever or chills. No reported rectal bleeding. PAST MEDICAL HISTORY: Positive for asthma and uterine fibroids. PAST SURGICAL HISTORY: Status post hysterectomy and thyroidectomy. ALLERGIES: No known allergies. MEDICATIONS: Include ceftriaxone, Flagyl, Tylenol, morphine, Protonix. SOCIAL HISTORY: The patient lives in the community. She is a nonsmoker, nondrinker. SYSTEMS REVIEW: Neurologic: No loss of consciousness, seizure activity, or focal weakness. Cardiac: Negative chest pain or palpitations. Respiratory: Negative cough or sputum production. Gastrointestinal: As per HPI. Genitourinary: Negative for urinary tract infection. LABORATORY DATA: White count 4.8 with 56 neutrophils, 23 lymphocytes, 17 monocytes, hematocrit 38.3, platelet count 344, BUN 7, creatinine 0.8. PHYSICAL EXAMINATION: General: She is awake and responsive in moderate distress secondary to left lower quadrant abdominal pain. Vital Signs: Temperature 98.1, blood pressure 145/80, pulse 20 and regular, respirations 18 per minute. HEENT: Sclerae anicteric. Heart: Sounds S1, S2. Lungs: Clear. Abdomen: Obese. Positive bowel sounds. There is left lower quadrant and suprapubic tenderness to palpation. No mass, rebound, or rigidity. Extremities: Negative for edema. IMPRESSION: 1. Acute, uncomplicated sigmoid diverticulitis. 2. Possible intraluminal foreign body in the rectum. PLAN: Obtain blood cultures. Empiric antibiotic coverage with ceftriaxone 2 g IV piggyback daily, Flagyl 500 mg IV piggyback every 8 hours. GI follow up. We will follow. Thank you for the kind referral. RAMSES MAK M.D. [id number]
--- NOTE | 2019-01-02 13:50 | EKG ---
Test Reason : Blood Pressure : / mmHG Vent. Rate : 067 BPM Atrial Rate : 067 BPM P-R Int : 138 ms QRS Dur : 120 ms QT Int : 454 ms P-R-T Axes : 035 -28 015 degrees QTc Int : 479 ms NORMAL SINUS RHYTHM RIGHT BUNDLE BRANCH BLOCK VOLTAGE CRITERIA FOR LEFT VENTRICULAR HYPERTROPHY ABNORMAL ECG WHEN COMPARED WITH ECG OF 19-NOV-2012 10:44, NO SIGNIFICANT CHANGE WAS FOUND Confirmed by MD Allen, Fredy ([id number]) on 01/02/2019 1:50:16 PM Referred By: Confirmed By:Fredy Villa MD
[2019-01-02] MEDS: DEXTROSE 5%-0.45% SALINE 1,000 ML IV SCH ×2 (17:10→18:25)
[2019-01-03] MEDS: DEXTROSE 5%-0.45% SALINE 1,000 ML IV SCH ×3 (03:20→19:44)
[2019-01-03] MEDS: PANTOPRAZOLE SODIUM 40 MG VIAL IVPUSH SCH (05:34)
[2019-01-03 07:38] LABS: BASO % 0.9 % (0-2.0); EOS % 4.9 % (0-4.5); HEMOGLOBIN 13.2 GM/dL (10.7-15.3); MCH 32.1 pg (25.7-33.7); MCHC 34.8 g/dl (32.0-36.0); MEAN CELL VOLUME 92.3 fl (80-96); MEAN PLT VOLUME 8.5 fl (7.5-11.1); MONO % 16.6 % (3.8-10.2); NEUT % 46.6 % (42.8-82.8); PLATELET COUNT 345 K/MM3 (134-434); RBC 4.12 M/mm3 (3.60-5.2); RDW 12.8 % (11.6-15.6); WHITE BLOOD COUNT 4.3 K/mm3 (4.0-10.0)
[2019-01-03 08:27] LABS: ALBUMIN 2.6 g/dl (3.4-5.0); ALK PHOS 66 U/L (45-117); ANION GAP 6 MMOL/L (8-16); BILIRUBIN,TOTAL 0.3 mg/dL (0.2-1); BLOOD UREA NITROGEN 6 mg/dL (7-18); CALCIUM 8.4 mg/dL (8.5-10.1); CHLORIDE 104 mmol/L (98-107); CO2 30 mmol/L (21-32); CREATININE 0.7 mg/dL (0.55-1.3); GLUCOSE,RANDOM 131 mg/dL (74-106); POTASSIUM 3.7 mmol/L (3.5-5.1); SGOT/AST 25 U/L (15-37); SGPT/ALT 19 U/L (13-61); SODIUM 140 mmol/L (136-145); TOT PROT 5.8 g/dl (6.4-8.2)
--- NOTE | 2019-01-03 08:32 | PN ---
GI Progress Note Subjective: Patient states continues to have abdominal pain but not as strong as yesterday. States having one episode of non-bloody diarrhea this morning accompanied with abdominal pain prior to BM. Denies nausea, vomiting. - Objective Vital Signs: Vital Signs Temperature 97.9 F 01/03/19 06:00 Pulse Rate 65 01/03/19 06:00 Respiratory Rate 20 01/03/19 06:00 Blood Pressure 138/75 01/03/19 06:00 O2 Sat by Pulse Oximetry (%) 95 01/02/19 09:00 Constitutional: Well Nourished, No Distress, Calm Eyes: Yes: Conjunctiva Clear HENT: Yes: Atraumatic Cardiovascular: Yes: Regular Rate and Rhythm Respiratory: Yes: Regular, CTA Bilaterally Gastrointestinal Inspection: Yes: WNL. No: Ascites, Distention, Hernia, Scars, Other ...Auscultate: Yes: Normoactive Bowel Sounds. No: Hyperactive Bowel Sounds, Hypoactive Bowel Sounds, No Bowel Sounds, Other ...Palpate: Yes: Soft, Tenderness (LUQ and LLQ). No: Firm/Rigid, Guarding, Hepatomegaly, Mass, Pulsatile Mass, Splenomegaly, Tenderness, Epigastium, Tenderness, Rebound, Other ...Percussion: Yes: Tympanitic. No: Dullness, Fluid Wave, Other Neurological: Yes: Alert, Oriented Labs: CBC, BMP 01/03/19 07:00 01/03/19 07:00 INR, PTT INR 1.11 (0.83-1.09) H 01/02/19 06:30 Active Medications Generic Name Dose Route Start Last Admin Trade Name Irajq PRN Reason Stop Dose Admin Heparin Sodium (Porcine) 5,000 unit 01/01/19 22:00 01/02/19 21:05 Heparin - SQ 5,000 unit BID [facility] Administration Metronidazole 500 mg in 100 mls @ 100 mls/hr 01/01/19 18:00 01/03/19 01:50 Flagyl 500mg Premixed Ivpb - IVPB 100 mls/hr Q8H-IV [facility] Administration Dextrose/Sodium Chloride 1,000 mls @ 125 mls/hr 01/01/19 18:16 01/03/19 03:20 D5-1/2ns - IV 01/04/19 23:44 125 mls/hr ASDIR [facility] Administration Ceftriaxone Sodium 2 gm/ 100 mls @ 200 mls/hr 01/03/19 10:00 Dextrose IVPB DAILY [facility] Protocol Morphine Sulfate 4 mg 01/01/19 15:42 Morphine Sulfate IVPUSH Q4H PRN PAIN LEVEL 7 - 10 Ondansetron HCl 4 mg 01/01/19 15:42 01/01/19 19:00 Zofran Injection IVPUSH 4 mg Q6H PRN Administration NAUSEA AND/OR VOMITING Pantoprazole Sodium 40 mg 01/02/19 06:00 01/03/19 05:34 Protonix Iv IVPUSH 40 mg DAILY@0600 [facility] Administration Problem List - Problems (1) Diverticulitis Assessment/Plan: >Continue with IVF hydration >continue with ceftiaxone and flagyl IVPB >will upgrade diet to clear liquids, if tolerated can advance to low fiber on 01/04/19 >AFP, CEA CA 19-9, CA 125 Code(s): K57.92 - DVTRCLI OF INTEST, PART UNSP, W/O PERF OR ABSCESS W/O BLEED (2) Melena Assessment/Plan: >monitor H/H, currently stable at 13.2/38.0 >transfuse if Hg <8.0 Code(s): K92.1 - MELENA
[2019-01-03] MEDS ORDERED: DEXTROSE 5%-WATER 100 ML IVPB ONE (08:40)
[2019-01-03] MEDS: HEPARIN NA (PORCINE) 5,000 UNITS/ML 1ML VIAL SQ SCH ×2 (09:00→21:24)
[2019-01-03] MEDS: CEFTRIAXONE 2 GM in DEXTROSE 5%-WATER 100 ML IVPB SCH (09:02)
--- NOTE | 2019-01-03 12:20 | PN ---
Progress Note, Physician History of Present Illness: OOB IN CHAIR C/O LLQ ABDOMINAL PAIN, LOOSE NON-BLOODY BM NO C/O FEVER/ CHILLS WBC WNL - Current Medication List Current Medications: Active Medications Heparin Sodium (Porcine) (Heparin -) 5,000 unit SQ BID [facility] Last Admin: 01/03/19 09:00 Dose: 5,000 unit Metronidazole (Flagyl 500mg Premixed Ivpb -) 500 mg in 100 mls @ 100 mls/hr IVPB Q8H-IV [facility] Last Admin: 01/03/19 09:01 Dose: 100 mls/hr Dextrose/Sodium Chloride (D5-1/2ns -) 1,000 mls @ 125 mls/hr IV ASDIR [facility] Stop: 01/04/19 23:44 Last Admin: 01/03/19 03:20 Dose: 125 mls/hr Ceftriaxone Sodium 2 gm/ (Dextrose) 100 mls @ 200 mls/hr IVPB DAILY [facility]; Protocol Last Admin: 01/03/19 09:02 Dose: 200 mls/hr Morphine Sulfate (Morphine Sulfate) 4 mg IVPUSH Q4H PRN PRN Reason: PAIN LEVEL 7 - 10 Ondansetron HCl (Zofran Injection) 4 mg IVPUSH Q6H PRN PRN Reason: NAUSEA AND/OR VOMITING Last Admin: 01/01/19 19:00 Dose: 4 mg Pantoprazole Sodium (Protonix Iv) 40 mg IVPUSH DAILY@0600 [facility] Last Admin: 01/03/19 05:34 Dose: 40 mg - Objective Vital Signs: Vital Signs Temperature 97.9 F 01/03/19 06:00 Pulse Rate 65 01/03/19 06:00 Respiratory Rate 20 01/03/19 06:00 Blood Pressure 138/75 01/03/19 06:00 O2 Sat by Pulse Oximetry (%) 95 01/02/19 09:00 Constitutional: Yes: No Distress Eyes: Yes: Conjunctiva Clear Cardiovascular: Yes: Regular Rate and Rhythm, S1, S2 Respiratory: Yes: CTA Bilaterally Gastrointestinal: Yes: Normal Bowel Sounds, Soft, Tenderness, Other (LLQ TENDERNESS TO PALP) Edema: No Labs: CBC, BMP 01/03/19 07:00 01/03/19 07:00 INR, PTT INR 1.11 (0.83-1.09) H 01/02/19 06:30 Assessment/Plan ACUTE UNCOMPLICATED SIGMOID DIVERTICULITIS CONTINUE CEFTRIAXONE/ FLAGYL
--- NOTE | 2019-01-03 13:14 | PN ---
Progress Note, Physician History of Present Illness: intermittent chest pain - Current Medication List Current Medications: Active Medications Heparin Sodium (Porcine) (Heparin -) 5,000 unit SQ BID [facility] Last Admin: 01/03/19 09:00 Dose: 5,000 unit Metronidazole (Flagyl 500mg Premixed Ivpb -) 500 mg in 100 mls @ 100 mls/hr IVPB Q8H-IV [facility] Last Admin: 01/03/19 09:01 Dose: 100 mls/hr Dextrose/Sodium Chloride (D5-1/2ns -) 1,000 mls @ 125 mls/hr IV ASDIR [facility] Stop: 01/04/19 23:44 Last Admin: 01/03/19 03:20 Dose: 125 mls/hr Ceftriaxone Sodium 2 gm/ (Dextrose) 100 mls @ 200 mls/hr IVPB DAILY [facility]; Protocol Last Admin: 01/03/19 09:02 Dose: 200 mls/hr Morphine Sulfate (Morphine Sulfate) 4 mg IVPUSH Q4H PRN PRN Reason: PAIN LEVEL 7 - 10 Ondansetron HCl (Zofran Injection) 4 mg IVPUSH Q6H PRN PRN Reason: NAUSEA AND/OR VOMITING Last Admin: 01/01/19 19:00 Dose: 4 mg Pantoprazole Sodium (Protonix Iv) 40 mg IVPUSH DAILY@0600 [facility] Last Admin: 01/03/19 05:34 Dose: 40 mg - Objective Vital Signs: Vital Signs Temperature 97.9 F 01/03/19 06:00 Pulse Rate 65 01/03/19 06:00 Respiratory Rate 20 01/03/19 06:00 Blood Pressure 138/75 01/03/19 06:00 O2 Sat by Pulse Oximetry (%) 95 01/02/19 09:00 Cardiovascular: Yes: Regular Rate and Rhythm Respiratory: Yes: Regular, CTA Bilaterally Gastrointestinal: Yes: Normal Bowel Sounds, Soft, Tenderness (llq/suprapubic) Labs: CBC, BMP 01/03/19 07:00 01/03/19 07:00 INR, PTT INR 1.11 (0.83-1.09) H 01/02/19 06:30 Problem List - Problems (1) Diverticulitis Assessment/Plan: NPO ivf morphine zofran iv abx rocephin flagyl GI consult dvtppx Code(s): K57.92 - DVTRCLI OF INTEST, PART UNSP, W/O PERF OR ABSCESS W/O BLEED (2) Leg pain Assessment/Plan: venous duplex Code(s): M79.606 - PAIN IN LEG, UNSPECIFIED (3) Chest pain Assessment/Plan: EKG CE CARDIO Code(s): R07.9 - CHEST PAIN, UNSPECIFIED
--- NOTE | 2019-01-03 14:49 | EKG ---
Test Reason : Blood Pressure : / mmHG Vent. Rate : 063 BPM Atrial Rate : 063 BPM P-R Int : 152 ms QRS Dur : 130 ms QT Int : 442 ms P-R-T Axes : 039 -29 015 degrees QTc Int : 452 ms NORMAL SINUS RHYTHM RIGHT BUNDLE BRANCH BLOCK VOLTAGE CRITERIA FOR LEFT VENTRICULAR HYPERTROPHY ABNORMAL ECG WHEN COMPARED WITH ECG OF 01-JAN-2019 13:26, NO SIGNIFICANT CHANGE WAS FOUND Confirmed by LACEY GARNER, VENUS ([id number]) on 01/03/2019 2:49:30 PM Referred By: SCAR DHILLON DR Confirmed By:VENUS RAHMAN MD
--- NOTE | 2019-01-03 16:02 | CON.CARD ---
Consult Consult Specialty:: Cardiology - History of Present Illness Chief Complaint: Chest pain History of Present Illness: This is a 68 year old female with a PMH of sthma, fibroids s/p hysterectomy many years back, and a partial thyroidectomy. She presented with LLQ pain and diagnosed with diverticulitis. We were call for chest pain. Presently she denies chest pain. The earlier chest pain may have been radiating from her LLQ. Troponin x 1 is negative EKG showed a RBBB, LVH, and no acute ST segment changes. - Past Medical History [employer]: No: Alzheimer's, CVA, Dementia, Migraine, Multiple Sclerosis, Peripheral Neuropathy, Parkinson's, Seizure, Syncope, TIA, Vertigo, Other Cardio/Vascular: No: AFIB, Aneurysm, Aortic Insufficiency, Aortic Stenosis, CAD , CHF, Deep Vein Thrombosis, HTN, Hyperlipdemia, OK, Mitral Insufficiency, Mitral Stenosis, Murmur, Pulmonary Hypertension, Other Pulmonary: Yes: Asthma. No: Bronchitis, Cancer, COPD, O2 Dependent, Pneumonia, Previously Intubated, Pulmonary Embolus, Pulmonary Fibrosis, Sleep Apnea, Other Gastrointestinal: Yes: Diverticulitis. No: Ascites, Cancer, Constipation, Crohn 's Disease, Diverticulosis, Esophageal Varices, Gastritis, GERD, GI Bleed, Hemorrhoids, Hiatal Hernia, Inflamatory Bowel Disease, Irritable Bowel Disease, Pancreatitis, Peptic Ulcer Disease, Ulcerative Colitis, Other Hepatobiliary: No: Cirrhosis, Cholelithiasis, Cholecystitis, Choledocholithiasis , Hepatitis A, Hepatitis B, Hepatitis C, Other Renal/: No: Renal Failure, Renal Inusuff, BPH, Cancer, Hematuria, Hemodialysis , Neurogenic Bladder, Renal Calculi, UTI, Other Infectious Disease: No: AIDS, C-Diff, Herpes Zoster, HIV, MRSA, STD's, Tuberculosis, VREF, Other Psych: No: Addictions, Anxiety, Bipolar, Depression, Panic, Psychosis, Schizophrenia, Other Musculoskeletal: No: Bursitis, Chronic low back pain, Hemiparesis, Hemiplegia, Osteoarthritis, Paraplegia, Other Rheumatology: No: Fibromyalgia, Gout, Lupus, Rheumatoid Arthritis, Sarcoidosis, Vasculitis, Other ENT: No: Allergic Rhinitis, Sinusitis, Other Endocrine: No: Greenwood's Disease, Gotha's Disease, Diabetes Insipidus, Diabetes Mellitus, Hyperparathyroidism, Hyperthyroidism, Hypothyroidism, Osteopenia, SIADH, Other Dermatology: No: Basal Cell, Cellulitis, Eczema, Melanoma, Psoriasis, Squamous Cell, Other - Past Surgical History Past Surgical History: Yes: Colonoscopy (3 months ago), Hysterectomy - Alcohol/Substance Use Hx Alcohol Use: No - Smoking History Smoking history: Never smoked Have you smoked in the past 12 months: No Aproximately how many cigarettes per day: 0 Home Medications - Allergies Allergies/Adverse Reactions: Allergies Allergy/AdvReac Type Severity Reaction Status Date / Time No Known Allergies Allergy Verified 01/01/19 12:33 - Home Medications Home Medications: Ambulatory Orders Ciprofloxacin [Cipro (Restricted To Id)] 500 mg PO Q12H #14 tablet 12/29/18 metroNIDAZOLE [Flagyl -] 500 mg PO TID #21 tablet 12/29/18 Pantoprazole Sodium [Protonix -] 40 mg PO DAILY 01/01/19 Vital Signs: Vital Signs Temperature 97.2 F L 01/03/19 14:14 Pulse Rate 64 01/03/19 14:14 Respiratory Rate 20 01/03/19 14:14 Blood Pressure 150/92 01/03/19 14:14 O2 Sat by Pulse Oximetry (%) 95 01/02/19 09:00 Constitutional: Yes: Well Nourished Eyes: Yes: WNL HENT: Yes: WNL Respiratory: Yes: CTA Bilaterally Gastrointestinal: Yes: Soft Cardiovascular: Yes: Regular Rate and Rhythm (NL S1S2 no MRHG) JVD: No Edema: No Neurological: Yes: Alert, Oriented - Other Data Labs, Other Data: CBC, BMP 01/03/19 07:00 01/03/19 07:00 INR, PTT INR 1.11 (0.83-1.09) H 01/02/19 06:30 Troponin, BNP 01/03/19 13:38 Troponin I < 0.02 Troponin, BNP 01/03/19 13:38 Troponin I < 0.02 Assessment/Plan 68 year old female with a PMH of sthma, fibroids s/p hysterectomy many years back, and a partial thyroidectomy. She presented with LLQ pain and diagnosed with diverticulitis. We were call for chest pain. Presently she denies chest pain. The earlier chest pain may have been radiating from her LLQ. Troponin x 1 is negative EKG showed a RBBB, LVH, and no acute ST segment changes. Chest pain Follow Troponin x3 Obtain an echocardiogram Eventually would do a cardiac stress test but as an outpatient when off antibiotics
[2019-01-04] MEDS: PANTOPRAZOLE SODIUM 40 MG VIAL IVPUSH SCH (05:42)
[2019-01-04 07:28] LABS: BASO % 0.9 % (0-2.0); EOS % 2.6 % (0-4.5); HEMATOCRIT 38.5 % (32.4-45.2); HEMOGLOBIN 13.5 GM/dL (10.7-15.3); LYMPH % 30.2 % (8-40); MCH 32.2 pg (25.7-33.7); MCHC 35.1 g/dl (32.0-36.0); MEAN CELL VOLUME 91.8 fl (80-96); MEAN PLT VOLUME 8.4 fl (7.5-11.1); MONO % 13.2 % (3.8-10.2); NEUT % 53.1 % (42.8-82.8); PLATELET COUNT 368 K/MM3 (134-434); RDW 12.9 % (11.6-15.6); WHITE BLOOD COUNT 5.4 K/mm3 (4.0-10.0)
--- NOTE | 2019-01-04 07:43 | PN ---
GI Progress Note Subjective: Patient states abdominal pain is better. Started on clear liquid diet yesterday. She states experiencing minor abdominal pain after ingesting liquids but not accompanied with nausea or vomiting. Complains of non-bloody diarrhea 3-4 times yesterday. Denies rectal bleeding or melena. - Objective Vital Signs: Vital Signs Temperature 98 F 01/04/19 06:00 Pulse Rate 68 01/04/19 06:00 Respiratory Rate 20 01/04/19 06:00 Blood Pressure 148/86 01/04/19 06:00 O2 Sat by Pulse Oximetry (%) 98 01/03/19 21:00 Constitutional: No Distress, Calm Eyes: Yes: Conjunctiva Clear HENT: Yes: Atraumatic Cardiovascular: Yes: Regular Rate and Rhythm Respiratory: Yes: Regular, CTA Bilaterally Gastrointestinal Inspection: Yes: Other. No: WNL, Ascites, Distention, Hernia, Scars ...Auscultate: Yes: Normoactive Bowel Sounds. No: Hyperactive Bowel Sounds, Hypoactive Bowel Sounds, No Bowel Sounds, Other ...Palpate: Yes: Soft, Tenderness (LLQ). No: Firm/Rigid, Guarding, Hepatomegaly , Mass, Pulsatile Mass, Splenomegaly, Tenderness, Epigastium, Tenderness, Rebound, Other ...Percussion: Yes: Tympanitic. No: Dullness, Fluid Wave, Other Neurological: Yes: Alert, Oriented Labs: INR, PTT INR 1.11 (0.83-1.09) H 01/02/19 06:30 Active Medications Generic Name Dose Route Start Last Admin Trade Name Freq PRN Reason Stop Dose Admin Heparin Sodium (Porcine) 5,000 unit 01/01/19 22:00 01/03/19 21:24 Heparin - SQ Not Given BID [facility] Metronidazole 500 mg in 100 mls @ 100 mls/hr 01/01/19 18:00 01/04/19 02:52 Flagyl 500mg Premixed Ivpb - IVPB 100 mls/hr Q8H-IV [facility] Administration Dextrose/Sodium Chloride 1,000 mls @ 125 mls/hr 01/01/19 18:16 01/03/19 19:44 D5-1/2ns - IV 01/04/19 23:44 Not Given ASDIR [facility] Ceftriaxone Sodium 2 gm/ 100 mls @ 200 mls/hr 01/03/19 10:00 01/03/19 09:02 Dextrose IVPB 200 mls/hr DAILY [facility] Administration Protocol Morphine Sulfate 4 mg 01/01/19 15:42 Morphine Sulfate IVPUSH Q4H PRN PAIN LEVEL 7 - 10 Ondansetron HCl 4 mg 01/01/19 15:42 01/01/19 19:00 Zofran Injection IVPUSH 4 mg Q6H PRN Administration NAUSEA AND/OR VOMITING Pantoprazole Sodium 40 mg 01/02/19 06:00 01/04/19 05:42 Protonix Iv IVPUSH 40 mg DAILY@0600 [facility] Administration Problem List - Problems (1) Diverticulitis Assessment/Plan: >Continue with IVF hydration >discontinue ceftriaxone and flagyl IV--will start on flagil 500mg PO TID >diet advance to low fiber >AFP, CEA CA 19-9, CA 125 results pending Code(s): K57.92 - DVTRCLI OF INTEST, PART UNSP, W/O PERF OR ABSCESS W/O BLEED (2) Melena Assessment/Plan: >monitor H/H daily >transfuse if Hg <8.0 Code(s): K92.1 - MELENA
[2019-01-04 07:58] LABS: ALBUMIN 2.8 g/dl (3.4-5.0); ALK PHOS 69 U/L (45-117); ANION GAP 7 MMOL/L (8-16); BILIRUBIN,TOTAL 0.6 mg/dL (0.2-1); BLOOD UREA NITROGEN 5 mg/dL (7-18); CALCIUM 8.3 mg/dL (8.5-10.1); CHLORIDE 105 mmol/L (98-107); CO2 29 mmol/L (21-32); CREATININE 0.7 mg/dL (0.55-1.3); GLUCOSE,RANDOM 134 mg/dL (74-106); POTASSIUM 3.7 mmol/L (3.5-5.1); SGOT/AST 19 U/L (15-37); SGPT/ALT 17 U/L (13-61); SODIUM 141 mmol/L (136-145); TOT PROT 6.4 g/dl (6.4-8.2)
[2019-01-04 08:08] LABS: CARCINOEMBRYONIC ANTIGEN 2.4 ng/mL (0.0-4.7)
[2019-01-04] MEDS ORDERED: PT OWN MED DRAWER 7, Y5N ONE (09:49)
[2019-01-04] MEDS ORDERED: DEXTROSE 5%-WATER 100 ML IVPB ONE (09:49)
[2019-01-04] MEDS: CEFTRIAXONE 2 GM in DEXTROSE 5%-WATER 100 ML IVPB SCH (09:54)
[2019-01-04] MEDS: HEPARIN NA (PORCINE) 5,000 UNITS/ML 1ML VIAL SQ SCH ×2 (09:57→21:22)
[2019-01-04 10:32] LABS: ERYTHROCYTE SEDIMENTATION RATE 38 mm/hr (0-30)
--- NOTE | 2019-01-04 14:10 | PN ---
Progress Note, Physician Chief Complaint: patient is having a little abdominal pain after eating seen by GI on ivf started on po flagly - Current Medication List Current Medications: Active Medications Heparin Sodium (Porcine) (Heparin -) 5,000 unit SQ BID ON LICENSE OF [facility] Last Admin: 01/04/19 09:57 Dose: 5,000 unit Dextrose/Sodium Chloride (D5-1/2ns -) 1,000 mls @ 125 mls/hr IV ASDIR [facility] Stop: 01/04/19 23:44 Last Admin: 01/03/19 19:44 Dose: Not Given Dextrose/Sodium Chloride (D5-1/2ns -) 1,000 mls @ 83 mls/hr IV ASDIR ON LICENSE OF [facility] Metronidazole (Flagyl -) 500 mg PO TID ON LICENSE OF [facility] Morphine Sulfate (Morphine Sulfate) 4 mg IVPUSH Q4H PRN PRN Reason: PAIN LEVEL 7 - 10 Ondansetron HCl (Zofran Injection) 4 mg IVPUSH Q6H PRN PRN Reason: NAUSEA AND/OR VOMITING Last Admin: 01/01/19 19:00 Dose: 4 mg Pantoprazole Sodium (Protonix Iv) 40 mg IVPUSH DAILY@0600 ON LICENSE OF [facility] Last Admin: 01/04/19 05:42 Dose: 40 mg - Objective Vital Signs: Vital Signs Temperature 98.0 F 01/04/19 09:53 Pulse Rate 59 L 01/04/19 09:53 Respiratory Rate 18 01/04/19 09:53 Blood Pressure 144/78 01/04/19 09:53 O2 Sat by Pulse Oximetry (%) 98 01/04/19 09:00 Constitutional: Yes: Calm Cardiovascular: Yes: Regular Rate and Rhythm, S1, S2 Respiratory: Yes: CTA Bilaterally Gastrointestinal: Yes: Tenderness (in LLQ- has improved but still there) Edema: No Neurological: Yes: Alert Labs: CBC, BMP 01/04/19 07:00 01/04/19 07:00 INR, PTT INR 1.11 (0.83-1.09) H 01/02/19 06:30 Problem List - Problems (1) Diverticulitis Assessment/Plan: diet advance to low fibre diet ivf morphine zofran iv abx rocephin flagyl stopped now po abx flagyl 500mg tid GI on board [id number] Code(s): K57.92 - DVTRCLI OF INTEST, PART UNSP, W/O PERF OR ABSCESS W/O BLEED
[2019-01-04] MEDS ORDERED: DEXTROSE 5%-0.45% SALINE 1,000 ML IV SCH (14:15)
[2019-01-04] MEDS: metroNIDAZOLE 250 MG TABLET PO SCH ×2 (14:33→21:22)
[2019-01-04] MEDS ORDERED: ACETAMINOPHEN 325 MG TABLET (FP) PO PRN (14:40)
--- NOTE | 2019-01-04 15:10 | PN ---
Progress Note, Physician Chief Complaint: Now comfortable History of Present Illness: This is a 68 year old female with a PMH of sthma, fibroids s/p hysterectomy many years back, and a partial thyroidectomy. She presented with LLQ pain and diagnosed with diverticulitis. We were call for chest pain. Presently she denies chest pain. The earlier chest pain may have been radiating from her LLQ. Troponin x 1 is negative EKG showed a RBBB, LVH, and no acute ST segment changes. - Current Medication List Current Medications: Active Medications Acetaminophen (Tylenol -) 650 mg PO Q6H PRN PRN Reason: PAIN LEVEL 1-5 Last Admin: 01/04/19 14:47 Dose: 650 mg Heparin Sodium (Porcine) (Heparin -) 5,000 unit SQ BID [facility] Last Admin: 01/04/19 09:57 Dose: 5,000 unit Dextrose/Sodium Chloride (D5-1/2ns -) 1,000 mls @ 125 mls/hr IV ASDIR [facility] Stop: 01/04/19 23:44 Last Admin: 01/03/19 19:44 Dose: Not Given Dextrose/Sodium Chloride (D5-1/2ns -) 1,000 mls @ 83 mls/hr IV ASDIR [facility] Last Admin: 01/04/19 14:34 Dose: 83 mls/hr Metronidazole (Flagyl -) 500 mg PO TID [facility] Last Admin: 01/04/19 14:33 Dose: 500 mg Morphine Sulfate (Morphine Sulfate) 4 mg IVPUSH Q4H PRN PRN Reason: PAIN LEVEL 7 - 10 Ondansetron HCl (Zofran Injection) 4 mg IVPUSH Q6H PRN PRN Reason: NAUSEA AND/OR VOMITING Last Admin: 01/01/19 19:00 Dose: 4 mg Pantoprazole Sodium (Protonix Iv) 40 mg IVPUSH DAILY@0600 [facility] Last Admin: 01/04/19 05:42 Dose: 40 mg - Objective Vital Signs: Vital Signs Temperature 97.7 F 01/04/19 14:56 Pulse Rate 71 01/04/19 14:56 Respiratory Rate 20 01/04/19 14:56 Blood Pressure 130/61 01/04/19 14:56 O2 Sat by Pulse Oximetry (%) 98 01/04/19 09:00 Constitutional: Yes: Well Nourished HENT: Yes: WNL Neck: Yes: WNL Cardiovascular: Yes: Regular Rate and Rhythm (NL S1S2 No [facility]) Respiratory: Yes: CTA Bilaterally Gastrointestinal: Yes: Normal Bowel Sounds Extremities: Yes: WNL Edema: No Neurological: Yes: Alert, Oriented Labs: CBC, BMP 01/04/19 07:00 01/04/19 07:00 INR, PTT INR 1.11 (0.83-1.09) H 01/02/19 06:30 Assessment/Plan 68 year old female with a PMH of sthma, fibroids s/p hysterectomy many years back, and a partial thyroidectomy. She presented with LLQ pain and diagnosed with diverticulitis. We were call for chest pain. Presently she denies chest pain. The earlier chest pain may have been radiating from her LLQ. Troponin x 1 is negative EKG showed a RBBB, LVH, and no acute ST segment changes. Chest pain Follow Troponin x3 Obtain an echocardiogram (can be done as an outpatient) Eventually would do a cardiac stress test but as an outpatient when off antibiotics Now CP free. Call us prn.
--- NOTE | 2019-01-04 15:22 | CONS ---
DATE OF CONSULTATION: 01/04/2019 REASON FOR CONSULTATION: Diverticulitis. REQUESTING PHYSICIAN: This is an inpatient consultation at the request of Dr. Denisse Mclaughlin. BRIEF HISTORY: This is a 68-year-old female who was seen in the emergency room on December [address] scan for abdominal pain, which showed uncomplicated diverticulitis. She returned to the hospital on January 01 and again had a CT scan done, which showed the same findings. She had been treated on Rocephin and Flagyl while in the hospital. She is currently being managed by the GI service. She is on a liquid diet. She is now down to only oral Flagyl antibiotic per the GI and ID service. She feels well. She is walking around her room. She denies diarrhea, denies blood in her stool, and denies recent weight loss. She has actually already been advanced to a low fiber diet for lunch today. PAST MEDICAL HISTORY: Significant for asthma and fibroids. PAST SURGICAL HISTORY: Includes abdominoplasty, a hysterectomy, a thyroidectomy. ALLERGIES: She has no known drug allergies. SOCIAL HISTORY: Negative for alcohol, negative for tobacco. FAMILY HISTORY: Noncontributory. REVIEW OF SYSTEMS: General: Denies fatigue or malaise. Cardiac: Denies chest pain or palpitations. Respiratory: Denies shortness of breath or wheeze. Gastrointestinal: As stated in HPI. Genitourinary: Denies dysuria. Musculoskeletal: Denies joint pain or joint swelling. Psychiatric: Denies anxiety, depression, or hearing voices. PHYSICAL EXAMINATION: General: This is an overweight 68-year-old female in no distress. Vital signs: She is currently afebrile, has been the entire admission. Her blood pressure is normal. Her heart rate is 59. HEENT: Her head is normocephalic. Her sclerae are anicteric. Neck: Supple. Chest: Clear. Abdomen: Soft. She has abdominoplasty incisions. She has mild left lower quadrant tenderness. She has no obvious hernias. Extremities: Trace edema. REVIEW OF LABORATORY DATA: White blood cell count is 5000 without a shift. Her chemistries are unremarkable. Her C-reactive protein is borderline elevated at 1.1. IMAGING: Shows diverticulitis of the sigmoid colon without perforation, without abscess. ASSESSMENT: This is a 68-year-old male with first episode of uncomplicated diverticulitis. She is currently being managed by the GI and ID service with only oral Flagyl as well as on a solid diet. She has no fever. Her white blood cell count is normal. This is her first episode. At this point, there are no indications for general surgical exploration and also no indication for elective colectomy to prevent future recurrence. Continue antibiotic choice and diet advancement per the medical team. Also, decisions on the need for colonoscopy per the GI service. DO MARCOS MENDIETA/[id number]
--- NOTE | 2019-01-04 16:38 | PN ---
Progress Note, Physician History of Present Illness: STILL C/O LLQ ABDOMINAL PAIN, LOOSE NON-BLOODY BM NO C/O FEVER/ CHILLS WBC WNL - Current Medication List Current Medications: Active Medications Acetaminophen (Tylenol -) 650 mg PO Q6H PRN PRN Reason: PAIN LEVEL 1-5 Last Admin: 01/04/19 14:47 Dose: 650 mg Heparin Sodium (Porcine) (Heparin -) 5,000 unit SQ BID [facility] Last Admin: 01/04/19 09:57 Dose: 5,000 unit Dextrose/Sodium Chloride (D5-1/2ns -) 1,000 mls @ 125 mls/hr IV ASDIR [facility] Stop: 01/04/19 23:44 Last Admin: 01/03/19 19:44 Dose: Not Given Dextrose/Sodium Chloride (D5-1/2ns -) 1,000 mls @ 83 mls/hr IV ASDIR [facility] Last Admin: 01/04/19 14:34 Dose: 83 mls/hr Metronidazole (Flagyl -) 500 mg PO TID [facility] Last Admin: 01/04/19 14:33 Dose: 500 mg Morphine Sulfate (Morphine Sulfate) 4 mg IVPUSH Q4H PRN PRN Reason: PAIN LEVEL 7 - 10 Ondansetron HCl (Zofran Injection) 4 mg IVPUSH Q6H PRN PRN Reason: NAUSEA AND/OR VOMITING Last Admin: 01/01/19 19:00 Dose: 4 mg Pantoprazole Sodium (Protonix Iv) 40 mg IVPUSH DAILY@0600 [facility] Last Admin: 01/04/19 05:42 Dose: 40 mg - Objective Vital Signs: Vital Signs Temperature 97.7 F 01/04/19 14:56 Pulse Rate 71 01/04/19 14:56 Respiratory Rate 20 01/04/19 14:56 Blood Pressure 130/61 01/04/19 14:56 O2 Sat by Pulse Oximetry (%) 98 01/04/19 09:00 Constitutional: Yes: No Distress, Obese Cardiovascular: Yes: Regular Rate and Rhythm, S1, S2 Respiratory: Yes: CTA Bilaterally Gastrointestinal: Yes: Normal Bowel Sounds, Soft, Tenderness, Other (MILD TENDERNESS TO DEEP PALP LLQ) Labs: CBC, BMP 01/04/19 07:00 01/04/19 07:00 INR, PTT INR 1.11 (0.83-1.09) H 01/02/19 06:30 Assessment/Plan ACUTE UNCOMPLICATED SIGMOID DIVERTICULITIS CEFTRIAXONE DISCONTINUED, SWITCHED TO PO FLAGYL MGT PER GI
[2019-01-04] MEDS ORDERED: oxyCODONE HCL 5 MG TABLET PO PRN (16:43)
[2019-01-05] MEDS: PANTOPRAZOLE SODIUM 40 MG VIAL IVPUSH SCH (05:56)
[2019-01-05] MEDS: metroNIDAZOLE 250 MG TABLET PO SCH ×2 (05:56→13:51)
[2019-01-05 07:07] LABS: BASO % 0.8 % (0-2.0); EOS % 3.3 % (0-4.5); HEMATOCRIT 40.4 % (32.4-45.2); HEMOGLOBIN 14.1 GM/dL (10.7-15.3); LYMPH % 28.8 % (8-40); MCH 32.4 pg (25.7-33.7); MCHC 34.7 g/dl (32.0-36.0); MEAN CELL VOLUME 93.2 fl (80-96); MEAN PLT VOLUME 8.6 fl (7.5-11.1); MONO % 16.3 % (3.8-10.2); NEUT % 50.8 % (42.8-82.8); PLATELET COUNT 359 K/MM3 (134-434); RBC 4.34 M/mm3 (3.60-5.2); RDW 12.7 % (11.6-15.6); WHITE BLOOD COUNT 5.9 K/mm3 (4.0-10.0)
[2019-01-05 08:10] LABS: ALBUMIN 2.7 g/dl (3.4-5.0); ALK PHOS 67 U/L (45-117); ANION GAP 4 MMOL/L (8-16); BILIRUBIN,TOTAL 0.3 mg/dL (0.2-1); BLOOD UREA NITROGEN 10 mg/dL (7-18); CALCIUM 8.4 mg/dL (8.5-10.1); CHLORIDE 106 mmol/L (98-107); CO2 29 mmol/L (21-32); CREATININE 0.6 mg/dL (0.55-1.3); GLUCOSE,RANDOM 128 mg/dL (74-106); POTASSIUM 3.7 mmol/L (3.5-5.1); SGOT/AST 31 U/L (15-37); SGPT/ALT 22 U/L (13-61); SODIUM 139 mmol/L (136-145); TOT PROT 6.2 g/dl (6.4-8.2)
--- NOTE | 2019-01-05 08:20 | PN ---
GI Progress Note Subjective: Patient states feeling better. She says experiencing 2-3 episodes of non- bloody diarrhea yesterday during the day and none in the evening. She has been tolerating the low fiber diet ordered. Denies abdominal pain, nausea, vomiting , rectal bleeding. - Objective Vital Signs: Vital Signs Temperature 98.4 F 01/05/19 07:09 Pulse Rate 63 01/05/19 07:09 Respiratory Rate 20 01/05/19 07:09 Blood Pressure 133/87 01/05/19 07:09 O2 Sat by Pulse Oximetry (%) 98 01/04/19 21:00 Constitutional: Well Nourished, No Distress, Calm Eyes: Yes: Conjunctiva Clear HENT: Yes: Atraumatic Cardiovascular: Yes: Regular Rate and Rhythm Respiratory: Yes: Regular, CTA Bilaterally Gastrointestinal Inspection: Yes: Scars. No: WNL, Ascites, Distention, Hernia, Other ...Auscultate: Yes: Normoactive Bowel Sounds. No: Hyperactive Bowel Sounds, Hypoactive Bowel Sounds, No Bowel Sounds, Other ...Palpate: Yes: Soft, Tenderness (minor tenderness LLQ) ...Percussion: Yes: Tympanitic. No: Dullness, Fluid Wave, Other Neurological: Yes: Alert, Oriented Labs: CBC, BMP 01/05/19 06:10 01/05/19 06:10 INR, PTT INR 1.11 (0.83-1.09) H 01/02/19 06:30 Active Medications Generic Name Dose Route Start Last Admin Trade Name Freq PRN Reason Stop Dose Admin Acetaminophen 650 mg 01/04/19 14:40 01/04/19 14:47 Tylenol - PO 650 mg Q6H PRN Administration PAIN LEVEL 1-5 Heparin Sodium (Porcine) 5,000 unit 01/01/19 22:00 01/04/19 21:22 Heparin - SQ 5,000 unit BID [facility] Administration Dextrose/Sodium Chloride 1,000 mls @ 83 mls/hr 01/04/19 14:15 01/04/19 14:34 D5-1/2ns - IV 83 mls/hr ASDIR [facility] Administration Metronidazole 500 mg 01/04/19 14:00 01/05/19 05:56 Flagyl - PO 500 mg TID [facility] Administration Ondansetron HCl 4 mg 01/01/19 15:42 01/01/19 19:00 Zofran Injection IVPUSH 4 mg Q6H PRN Administration NAUSEA AND/OR VOMITING Oxycodone HCl 5 mg 01/04/19 16:43 Roxicodone - PO Q6H PRN PAIN LEVEL 7 - 10 Pantoprazole Sodium 40 mg 01/02/19 06:00 01/05/19 05:56 Protonix Iv IVPUSH 40 mg DAILY@0600 [facility] Administration Problem List - Problems (1) Diverticulitis Assessment/Plan: >Continue with IVF hydration >on discharge patient should continue with Flagyl 250mg tablet PO TID x 14 days >continue with low fiber diet >AFP 2.8, CEA 2.4, CA 19-9 9, CA 125 6.6 >Patient instructed to follow up as outpatient in GI office for further management Code(s): K57.92 - DVTRCLI OF INTEST, PART UNSP, W/O PERF OR ABSCESS W/O BLEED (2) Melena Assessment/Plan: >monitor H/H daily >transfuse if Hg <8.0 Code(s): K92.1 - MELENA
[2019-01-05] MEDS: HEPARIN NA (PORCINE) 5,000 UNITS/ML 1ML VIAL SQ SCH (10:31)
[2019-01-05 15:15] VITALS: BP 152/86; PULSE 71; TEMP 98.1
--- NOTE | 2019-01-05 16:05 | DS ---
Physical Examination Vital Signs: Vital Signs Temperature 98.1 F 01/05/19 14:45 Pulse Rate 71 01/05/19 14:45 Respiratory Rate 18 01/05/19 14:45 Blood Pressure 152/86 01/05/19 14:45 O2 Sat by Pulse Oximetry (%) 98 01/05/19 09:00 Constitutional: Yes: Calm Cardiovascular: Yes: Regular Rate and Rhythm, S1, S2 Respiratory: Yes: CTA Bilaterally Gastrointestinal: Yes: Normal Bowel Sounds, Soft Neurological: Yes: Alert, Oriented Labs: CBC, BMP 01/05/19 06:10 01/05/19 06:10 Discharge Summary Reason For Visit: DIVERTICULITIS Current Active Problems Chest pain (Acute) Leg pain (Acute) Melena (Acute) Other Procedures: ct scan show acute uncomplicated sigmoid diverticuilitis Hospital Course: Primary Care Physician PCP: Denisse Mclaughlin - Admission Chief Complaint: came in for abdominal pain sent in by dr alvarez History of Present Illness: 68 yo female with PMH asthma, fibroids s/p hysterectomy many years back, partial thyroidectomy, presents with worsening LLQ pain following recent visit and dx of diverticulitis. She was seen by Dr. Alvarez as an outpatient who sent her to the emergency room for further evaluation with noncontrast CT Abdomen/ Pelvis to evaluate for possible perforation with worsening pain on outpatient antibiotics. He also recommended admission for IV Rocephin and Flagyl. She endorses a lot of chills recently. States she feels constipated. She does endorse one small hard bowel movement this morning. Denies any blood in her stool. Endorses nausea, however she denies any vomiting. patient has been taking cipro and flagyl at home was given by ER when she came a few days ago for similar complains patient treated for diverticultis on iv abx then change to po anx Condition: Stable - Instructions Diet, Activity, Other Instructions: flagyl 250mg po tid for 14 days low fibre diet Referrals: Clarence Villeda MD [Staff Physician] - Disposition: HOME - Home Medications Comprehensive Discharge Medication List: Ambulatory Orders Ciprofloxacin [Cipro (Restricted To Id)] 500 mg PO Q12H #14 tablet 12/29/18 metroNIDAZOLE [Flagyl -] 500 mg PO TID #21 tablet 12/29/18 Pantoprazole Sodium [Protonix -] 40 mg PO DAILY 01/01/19
--- NOTE | 2019-01-05 16:44 | PN ---
Progress Note (short form) - Note Progress Note: patient admitted for abdominal pain and infection of the colon she was admitted from 01/01/18 to 01/05/18 she can return to work on tuesday01/08/18 Problem List - Problems (1) Diverticulitis Code(s): K57.92 - DVTRCLI OF INTEST, PART UNSP, W/O PERF OR ABSCESS W/O BLEED
== END 2019-01-05 17:39 | disposition home or self-care (01) | DRG 392 ==
LOC: JER 11:31 → JERBED 15:42 → J5S 17:52
PROVIDERS: ADMIT Family Medicine; ATTEND Family Medicine
DX: K57.32 Diverticulitis of large intestine without perforation or abscess without bleeding (principal); K92.1 Melena; J45.909 Unspecified asthma, uncomplicated; Z90.710 Acquired absence of both cervix and uterus; K59.00 Constipation, unspecified; I45.10 Unspecified right bundle-branch block; M79.606 Pain in leg, unspecified; E66.9 Obesity, unspecified; Z68.29 Body mass index [BMI] 29.0-29.9, adult
CPT/HCPCS: 36415; 71046-TC-FY; 74176-TC; 80053; 82105; 82378; 82550; 83735; 84100; 84484; 85025; 85027; 85610; 85651; 85730; 86140; 86301; 86304; 86850; 86900; 86901; 93005; 93010; 93970-TC; 99282-25; J0131; J1644

== ENCOUNTER 2021-06-28 18:12 | Observation (INO) | payer OTHER ==
[2021-06-28] MEDS ORDERED: MAG HYDROX/AL HYDROX/SIMETH 30 ML UNIT-DOSE CUP PO ONE (19:23)
[2021-06-28] MEDS ORDERED: FAMOTIDINE 20 MG TABLET PO ONE (19:24)
[2021-06-28] MEDS ORDERED: ACETAMINOPHEN 325 MG TABLET (FP) PO ONE (19:24)
[2021-06-28] MEDS ORDERED: ASPIRIN 81 MG CHEWABLE TABLETS PO ONE (19:38)
[2021-06-28] MEDS ORDERED: FAMOTIDINE 20 MG TABLET ONE (19:46)
[2021-06-28] MEDS ORDERED: ACETAMINOPHEN 325 MG TABLET (FP) ONE (19:46)
[2021-06-28] MEDS ORDERED: ASPIRIN 81 MG CHEWABLE TABLETS ONE (19:46)
[2021-06-28] MEDS ORDERED: MAG HYDROX/AL HYDROX/SIMETH 30 ML UNIT-DOSE CUP ONE (19:47)
[2021-06-28 20:06] LABS: BASO % 1.2 % (0-2.0); EOS % 3.2 % (0-4.5); HEMATOCRIT 42.1 % (32.4-45.2); HEMOGLOBIN 14.5 GM/dL (10.7-15.3); LYMPH % 29.3 % (8-40); MCH 31.7 pg (25.7-33.7); MCHC 34.5 g/dl (32.0-36.0); MEAN CELL VOLUME 91.9 fl (80-96); MEAN PLT VOLUME 8.4 fl (7.5-11.1); MONO % 13.6 % (3.8-10.2); NEUT % 52.7 % (42.8-82.8); PLATELET COUNT 347 10^3/uL (134-434); RBC 4.58 M/mm3 (3.60-5.2); RDW 13.1 % (11.6-15.6)
[2021-06-28 20:14] LABS: CHLORIDE 106 mmol/L (98-107); SODIUM 141 mmol/L (136-145)
[2021-06-28 20:17] LABS: ALBUMIN 3.4 g/dl (3.4-5.0); ANION GAP 7 MMOL/L (8-16); BLOOD UREA NITROGEN 17.1 mg/dL (7-18); CALCIUM 9.1 mg/dL (8.5-10.1); CO2 28 mmol/L (21-32); GLUCOSE,RANDOM 78 mg/dL (74-106); LIPASE 108 U/L (73-393)
[2021-06-28 20:19] LABS: CREATININE 0.7 mg/dL (0.55-1.3); SGOT/AST 19 U/L (15-37); SGPT/ALT 25 U/L (13-61)
[2021-06-28 20:21] LABS: BILIRUBIN,TOTAL 0.2 mg/dL (0.2-1); TOT PROT 7.4 g/dl (6.4-8.2)
[2021-06-28 20:22] LABS: URINE APPEARANCE CLEAR; URINE BILIRUBIN 1+ (NEGATIVE); URINE COLOR DK YELLOW; URINE GLUCOSE (UA) NEGATIVE (NEGATIVE); URINE KETONE TRACE (NEGATIVE); URINE LEUK ESTERASE NEGATIVE (NEGATIVE); URINE NITRITE NEGATIVE (NEGATIVE); URINE PROTEIN NEGATIVE (NEGATIVE)
[2021-06-28 20:22] LABS: ALK PHOS 83 U/L (45-117)
[2021-06-28] MEDS ORDERED: PANTOPRAZOLE SODIUM 40 MG VIAL IVPUSH ONE (22:34)
[2021-06-28] MEDS ORDERED: PANTOPRAZOLE SODIUM 40 MG/100 ML BAG IVPB ONE (22:44)
[2021-06-29] MEDS ORDERED: ACETAMINOPHEN 325 MG TABLET (FP) PO PRN (01:00)
[2021-06-29 05:59] LABS: BASO % 1.1 % (0-2.0); EOS % 3.2 % (0-4.5); HEMATOCRIT 39.9 % (32.4-45.2); LYMPH % 36.9 % (8-40); MCH 32.1 pg (25.7-33.7); MEAN CELL VOLUME 91.7 fl (80-96); MEAN PLT VOLUME 8.4 fl (7.5-11.1); MONO % 13.3 % (3.8-10.2); NEUT % 45.5 % (42.8-82.8); PLATELET COUNT 315 10^3/uL (134-434); RBC 4.35 M/mm3 (3.60-5.2); RDW 12.8 % (11.6-15.6)
[2021-06-29 06:14] LABS: CHLORIDE 106 mmol/L (98-107); SODIUM 140 mmol/L (136-145)
[2021-06-29 06:16] LABS: CALCIUM 8.2 mg/dL (8.5-10.1)
[2021-06-29 06:17] LABS: ALBUMIN 3.1 g/dl (3.4-5.0); ANION GAP 3 MMOL/L (8-16); BLOOD UREA NITROGEN 15.9 mg/dL (7-18); CO2 30 mmol/L (21-32); GLUCOSE,RANDOM 95 mg/dL (74-106); MAGNESIUM 2.3 mg/dL (1.8-2.4)
[2021-06-29 06:20] LABS: CHOLESTEROL 169 mg/dL (50-200); CREATININE 0.6 mg/dL (0.55-1.3); SGOT/AST 15 U/L (15-37); SGPT/ALT 27 U/L (13-61); TRIGLYCERIDES 125 mg/dL (0-150)
[2021-06-29 06:21] LABS: BILIRUBIN,TOTAL 0.4 mg/dL (0.2-1); LDL CHOLESTEROL (ONLY SJRH) 97 mg/dL (5-100); TOT PROT 7.5 g/dl (6.4-8.2)
[2021-06-29 06:22] LABS: ALK PHOS 87 U/L (45-117)
[2021-06-29 06:23] LABS: HDL CHOLESTEROL 51 mg/dL (40-60)
[2021-06-29] MEDS ORDERED: amLODIPine BESYLATE 5 MG TABLET (FP) ONE (09:08)
[2021-06-29] MEDS ORDERED: PANTOPRAZOLE 40 MG TABLET ONE (09:08)
[2021-06-29] MEDS ORDERED: ASPIRIN COATED 81 MG TABLET.EC ONE (09:08)
[2021-06-29] MEDS: amLODIPine BESYLATE 5 MG TABLET (FP) PO SCH (09:16)
[2021-06-29] MEDS: ASPIRIN 81 MG CHEWABLE TABLETS PO SCH (09:16)
[2021-06-29] MEDS: PANTOPRAZOLE 40 MG TABLET PO SCH (09:16)
[2021-06-29 21:14] VITALS: BMI 28.3
[2021-06-30 06:29] VITALS: TEMP 97.7
[2021-06-30] MEDS: ASPIRIN 81 MG CHEWABLE TABLETS PO SCH (09:05)
[2021-06-30] MEDS: PANTOPRAZOLE 40 MG TABLET PO SCH (09:05)
[2021-06-30] MEDS: amLODIPine BESYLATE 5 MG TABLET (FP) PO SCH (09:05)
[2021-06-30 09:29] VITALS: BP 130/77; PULSE 66
[2021-06-30] MEDS ORDERED: REGADENOSON 0.4 MG/5 ML PRE-FILLED SYRINGE IVPUSH ONE ×2 (10:01→10:15)
== END 2021-06-30 15:27 | disposition home or self-care (01) ==
LOC: JER 18:12 → JERBED 21:26 → INTOOBSV 21:26 → J4W 06-29 19:30
PROVIDERS: ADMIT Internal Medicine; ATTEND Family Medicine
PROC: 3E033GC Introduction of Other Therapeutic Substance into Peripheral Vein, Percutaneous Approach (ICD-10-PCS; principal; 2021-06-28)
DX: E11.649 Type 2 diabetes mellitus with hypoglycemia without coma (principal); Z11.52 Encounter for screening for COVID-19; J45.909 Unspecified asthma, uncomplicated; K57.90 Diverticulosis of intestine, part unspecified, without perforation or abscess without bleeding; K21.9 Gastro-esophageal reflux disease without esophagitis; I10 Essential (primary) hypertension; R53.1 Weakness; R07.89 Other chest pain
CPT/HCPCS: 36415; 71045-TC-FY; 78452-TC; 80053; 80061; 81003; 82962; 83690; 83735; 84443; 84484; 85025; 87086; 93005; 93010; 93017; 93306-TC; 96374; 96375; 99285-25; A9502; C9803; G0378; J2785; U0003; U0005

== ENCOUNTER 2021-07-27 14:10 | Emergency (ER) | payer OTHER ==
[2021-07-27 14:35] VITALS: BP 138/85; PULSE 92; TEMP 98; BMI 29.2
[2021-07-27] MEDS ORDERED: DIPHTH,PERTUSS(ACELL),TET 0.5 ML DISP.SYRIN IM ONE ×2 (19:00→19:03)
== END 2021-07-27 19:09 | disposition home or self-care (01) ==
LOC: JERFT 14:10
PROC: 0HQ1XZZ Repair Face Skin, External Approach (ICD-10-PCS; principal; 2021-07-27)
PROC: 3E0234Z Introduction of Serum, Toxoid and Vaccine into Muscle, Percutaneous Approach (ICD-10-PCS; 2021-07-27)
DX: S01.81XA Laceration without foreign body of other part of head, initial encounter (principal); M54.6 Pain in thoracic spine; W19.XXXA Unspecified fall, initial encounter
CPT/HCPCS: 12011-25; 70486-TC; 72070-TC-FY; 90471; 90715; 99284-25

== ENCOUNTER 2021-07-31 10:13 | Inpatient (IN) | payer OTHER ==
[2021-07-31 12:23] LABS: BASO % 0.9 % (0-2.0); HEMATOCRIT 41.6 % (32.4-45.2); HEMOGLOBIN 14.5 GM/dL (10.7-15.3); LYMPH % 26.8 % (8-40); MCH 32.3 pg (25.7-33.7); MCHC 34.8 g/dl (32.0-36.0); MEAN CELL VOLUME 92.9 fl (80-96); MEAN PLT VOLUME 8.4 fl (7.5-11.1); NEUT % 56.3 % (42.8-82.8); PLATELET COUNT 426 10^3/uL (134-434); RBC 4.47 M/mm3 (3.60-5.2); RDW 13.3 % (11.6-15.6); WHITE BLOOD COUNT 5.5 K/mm3 (4.0-10.0)
[2021-07-31 12:47] LABS: CALCIUM 9.3 mg/dL (8.5-10.1)
[2021-07-31 12:48] LABS: ALBUMIN 3.3 g/dl (3.4-5.0); BLOOD UREA NITROGEN 11.4 mg/dL (7-18)
[2021-07-31 12:51] LABS: CREATININE 0.6 mg/dL (0.55-1.3)
[2021-07-31 12:53] LABS: BILIRUBIN,TOTAL 0.3 mg/dL (0.2-1); TOT PROT 7.6 g/dl (6.4-8.2)
[2021-07-31] MEDS ORDERED: VANCOMYCIN HCL 1,500 MG in DEXTROSE 5%-WATER - 500 ML IVPB ONE (15:28)
[2021-07-31] MEDS ORDERED: ACETAMINOPHEN 325 MG TABLET (FP) PO PRN (18:45)
[2021-07-31] MEDS ORDERED: oxyCODONE HCL 5 MG TABLET PO PRN (18:45)
[2021-07-31] MEDS ORDERED: ATORVASTATIN CA 20 MG TABLET (FP) ONE (20:54)
[2021-07-31] MEDS ORDERED: PIPERACILLIN/TAZOB 3.375 GM 3.375 GM/50 ML BAG IVPB ONE (20:54)
[2021-07-31] MEDS ORDERED: HEPARIN NA (PORCINE) 5,000 UNITS/ML 1ML VIAL ONE (20:54)
[2021-07-31] MEDS: INSULIN SLIDING SCALE (NOVOLOG) 1 VIAL SQ SCH (21:10)
[2021-07-31] MEDS: PIPERACILLIN/TAZOB 3.375 GM 3.375 GM in DEXTROSE 5%-WATER - 50 ML IVPB SCH (21:10)
[2021-07-31] MEDS: ATORVASTATIN CA 20 MG TABLET (FP) PO SCH (21:10)
[2021-07-31] MEDS: HEPARIN NA (PORCINE) 5,000 UNITS/ML 1ML VIAL SQ SCH (21:16)
[2021-07-31] MEDS: BUDESONIDE/FORMETEROL FUMARATE 160/4.5 mcg INHALER IH SCH (22:14)
[2021-07-31] MEDS: LATANOPROST 0.005% OPHTH SOLN 2.5ML BOTTLE OU SCH (22:14)
[2021-07-31] MEDS ORDERED: PIPERACILLIN/TAZOBACTAM 3.375 GM VIAL IVPB ONE (23:51)
[2021-07-31] MEDS ORDERED: DEXTROSE 5%-WATER - 50 ML IVPB ONE (23:51)
[2021-08-01 00:21] VITALS: BMI 26.5
[2021-08-01] MEDS: PIPERACILLIN/TAZOB 3.375 GM 3.375 GM in DEXTROSE 5%-WATER - 50 ML IVPB SCH ×4 (01:01→17:25)
[2021-08-01] MEDS: INSULIN SLIDING SCALE (NOVOLOG) 1 VIAL SQ SCH ×4 (06:26→21:36)
[2021-08-01 08:48] LABS: BASO % 0.7 % (0-2.0); EOS % 2.7 % (0-4.5); HEMATOCRIT 38.9 % (32.4-45.2); HEMOGLOBIN 13.5 GM/dL (10.7-15.3); MCH 32.1 pg (25.7-33.7); MCHC 34.7 g/dl (32.0-36.0); MEAN CELL VOLUME 92.3 fl (80-96); MEAN PLT VOLUME 8.5 fl (7.5-11.1); MONO % 13.4 % (3.8-10.2); NEUT % 48.2 % (42.8-82.8); PLATELET COUNT 352 10^3/uL (134-434); RBC 4.21 M/mm3 (3.60-5.2); RDW 13.1 % (11.6-15.6); WHITE BLOOD COUNT 5.7 K/mm3 (4.0-10.0)
[2021-08-01] MEDS ORDERED: PIPERACILLIN/TAZOBACTAM 3.375 GM VIAL IVPB ONE ×2 (09:13→16:18)
[2021-08-01] MEDS ORDERED: DEXTROSE 5%-WATER - 50 ML IVPB ONE ×2 (09:13→16:18)
[2021-08-01 09:14] LABS: ALBUMIN 2.9 g/dl (3.4-5.0)
[2021-08-01 09:15] LABS: BLOOD UREA NITROGEN 12.2 mg/dL (7-18)
[2021-08-01 09:18] LABS: CREATININE 0.5 mg/dL (0.55-1.3)
[2021-08-01 09:19] LABS: BILIRUBIN,TOTAL 0.5 mg/dL (0.2-1); TOT PROT 6.6 g/dl (6.4-8.2)
[2021-08-01] MEDS: ASPIRIN 81 MG CHEWABLE TABLETS PO SCH (10:00)
[2021-08-01] MEDS: PANTOPRAZOLE 40 MG TABLET PO SCH (10:00)
[2021-08-01] MEDS: HEPARIN NA (PORCINE) 5,000 UNITS/ML 1ML VIAL SQ SCH ×2 (10:00→21:29)
[2021-08-01] MEDS: amLODIPine BESYLATE 5 MG TABLET (FP) PO SCH (10:00)
[2021-08-01] MEDS: BUDESONIDE/FORMETEROL FUMARATE 160/4.5 mcg INHALER IH SCH ×2 (10:03→21:50)
[2021-08-01] MEDS ORDERED: VANCOMYCIN 1,000 MG in DEXTROSE 5%-WATER - 250 ML IVPB SCH (13:00)
[2021-08-01] MEDS ORDERED: VANCOMYCIN 1 GRAM (PRE-DOCKED) 1 GM/250 ML BAG IVPB SCH (13:00)
[2021-08-01] MEDS: ACETAMINOPHEN 325 MG TABLET (FP) PO PRN ×2 (14:10→21:27)
[2021-08-01] MEDS: VANCOMYCIN 1 GRAM (PRE-DOCKED) 1 GM/250 ML BAG IVPB SCH (15:17)
[2021-08-01] MEDS: ATORVASTATIN CA 20 MG TABLET (FP) PO SCH (21:27)
[2021-08-01] MEDS: LATANOPROST 0.005% OPHTH SOLN 2.5ML BOTTLE OU SCH (21:51)
[2021-08-02] MEDS: PIPERACILLIN/TAZOB 3.375 GM 3.375 GM in DEXTROSE 5%-WATER - 50 ML IVPB SCH ×4 (01:30→18:27)
[2021-08-02] MEDS: VANCOMYCIN 1 GRAM (PRE-DOCKED) 1 GM/250 ML BAG IVPB SCH ×2 (02:00→15:04)
[2021-08-02] MEDS ORDERED: PIPERACILLIN/TAZOBACTAM 3.375 GM VIAL IVPB ONE ×3 (02:12→17:48)
[2021-08-02] MEDS ORDERED: DEXTROSE 5%-WATER - 50 ML IVPB ONE ×3 (02:13→17:48)
[2021-08-02] MEDS: INSULIN SLIDING SCALE (NOVOLOG) 1 VIAL SQ SCH ×4 (06:26→21:14)
[2021-08-02] MEDS: PANTOPRAZOLE 40 MG TABLET PO SCH (11:46)
[2021-08-02] MEDS: ACETAMINOPHEN 325 MG TABLET (FP) PO PRN ×2 (11:46→20:04)
[2021-08-02] MEDS: amLODIPine BESYLATE 5 MG TABLET (FP) PO SCH (11:46)
[2021-08-02] MEDS: HEPARIN NA (PORCINE) 5,000 UNITS/ML 1ML VIAL SQ SCH ×2 (11:46→21:05)
[2021-08-02] MEDS: ASPIRIN 81 MG CHEWABLE TABLETS PO SCH (11:47)
[2021-08-02] MEDS: BUDESONIDE/FORMETEROL FUMARATE 160/4.5 mcg INHALER IH SCH ×2 (11:47→21:07)
[2021-08-02] MEDS ORDERED: INSULIN (NOVOLOG) ASPART 100 UNITS/ML 10ML VIAL ONE (12:55)
[2021-08-02] MEDS: LATANOPROST 0.005% OPHTH SOLN 2.5ML BOTTLE OU SCH (21:05)
[2021-08-02] MEDS: ATORVASTATIN CA 20 MG TABLET (FP) PO SCH (21:05)
[2021-08-03] MEDS ORDERED: PIPERACILLIN/TAZOBACTAM 3.375 GM VIAL IVPB ONE ×3 (01:18→17:25)
[2021-08-03] MEDS ORDERED: DEXTROSE 5%-WATER - 50 ML IVPB ONE ×3 (01:19→17:25)
[2021-08-03] MEDS: PIPERACILLIN/TAZOB 3.375 GM 3.375 GM in DEXTROSE 5%-WATER - 50 ML IVPB SCH ×3 (01:28→17:32)
[2021-08-03] MEDS: VANCOMYCIN 1 GRAM (PRE-DOCKED) 1 GM/250 ML BAG IVPB SCH ×2 (02:00→12:03)
[2021-08-03] MEDS: INSULIN SLIDING SCALE (NOVOLOG) 1 VIAL SQ SCH ×4 (06:06→22:33)
[2021-08-03] MEDS ORDERED: PT OWN MED DRAWER 7, Y5N ONE (10:07)
[2021-08-03] MEDS: BUDESONIDE/FORMETEROL FUMARATE 160/4.5 mcg INHALER IH SCH ×2 (10:11→22:33)
[2021-08-03] MEDS: PANTOPRAZOLE 40 MG TABLET PO SCH (10:12)
[2021-08-03] MEDS: amLODIPine BESYLATE 5 MG TABLET (FP) PO SCH (10:12)
[2021-08-03] MEDS: ASPIRIN 81 MG CHEWABLE TABLETS PO SCH (10:12)
[2021-08-03] MEDS: HEPARIN NA (PORCINE) 5,000 UNITS/ML 1ML VIAL SQ SCH ×2 (10:12→22:32)
[2021-08-03] MEDS: ATORVASTATIN CA 20 MG TABLET (FP) PO SCH (22:32)
[2021-08-03] MEDS: LATANOPROST 0.005% OPHTH SOLN 2.5ML BOTTLE OU SCH (22:33)
[2021-08-04] MEDS ORDERED: DEXTROSE 5%-WATER - 50 ML IVPB ONE ×2 (01:38→09:48)
[2021-08-04] MEDS ORDERED: PIPERACILLIN/TAZOBACTAM 3.375 GM VIAL IVPB ONE ×2 (01:38→09:48)
[2021-08-04] MEDS: PIPERACILLIN/TAZOB 3.375 GM 3.375 GM in DEXTROSE 5%-WATER - 50 ML IVPB SCH ×2 (01:49→10:43)
[2021-08-04] MEDS: VANCOMYCIN 1 GRAM (PRE-DOCKED) 1 GM/250 ML BAG IVPB SCH (06:19)
[2021-08-04] MEDS: INSULIN SLIDING SCALE (NOVOLOG) 1 VIAL SQ SCH ×2 (06:21→11:28)
[2021-08-04 09:53] LABS: BASO % 0.8 % (0-2.0); EOS % 3.3 % (0-4.5); HEMATOCRIT 40.8 % (32.4-45.2); HEMOGLOBIN 13.9 GM/dL (10.7-15.3); LYMPH % 30.9 % (8-40); MCH 31.4 pg (25.7-33.7); MEAN CELL VOLUME 92.4 fl (80-96); MEAN PLT VOLUME 8.3 fl (7.5-11.1); MONO % 9.4 % (3.8-10.2); NEUT % 55.6 % (42.8-82.8); PLATELET COUNT 359 10^3/uL (134-434); RBC 4.42 M/mm3 (3.60-5.2); RDW 12.7 % (11.6-15.6); WHITE BLOOD COUNT 5.4 K/mm3 (4.0-10.0)
[2021-08-04] MEDS: amLODIPine BESYLATE 5 MG TABLET (FP) PO SCH (10:42)
[2021-08-04] MEDS: PANTOPRAZOLE 40 MG TABLET PO SCH (10:42)
[2021-08-04] MEDS: HEPARIN NA (PORCINE) 5,000 UNITS/ML 1ML VIAL SQ SCH (10:42)
[2021-08-04] MEDS: ASPIRIN 81 MG CHEWABLE TABLETS PO SCH (10:42)
[2021-08-04] MEDS: BUDESONIDE/FORMETEROL FUMARATE 160/4.5 mcg INHALER IH SCH (10:45)
[2021-08-04 10:46] LABS: BLOOD UREA NITROGEN 15.2 mg/dL (7-18); CALCIUM 9.1 mg/dL (8.5-10.1)
[2021-08-04 10:49] LABS: CREATININE 0.7 mg/dL (0.55-1.3)
[2021-08-04] MEDS ORDERED: INSULIN (NOVOLOG) ASPART 100 UNITS/ML 10ML VIAL ONE (11:19)
[2021-08-04 14:44] VITALS: BP 136/78; PULSE 60; TEMP 98.2
[2021-08-04] MEDS ORDERED: VANCOMYCIN 1 GRAM (PRE-DOCKED) 1 GM/250 ML BAG IVPB SCH (18:00)
[2021-08-05] MEDS ORDERED: SULFAMETHOXAZOLE/TRIMETHOPRIM 800MG/160MG D.S. TABLET PO SCH (10:00)
== END 2021-08-04 16:01 | disposition home or self-care (01) | DRG 603 ==
LOC: JER 10:13 → JERBED 15:25 → J8W 23:34
PROVIDERS: ADMIT Family Medicine; ATTEND Family Medicine
DX: L03.211 Cellulitis of face (principal); I10 Essential (primary) hypertension; E11.9 Type 2 diabetes mellitus without complications; Z79.84 Long term (current) use of oral hypoglycemic drugs; K21.9 Gastro-esophageal reflux disease without esophagitis; K29.60 Other gastritis without bleeding; J45.909 Unspecified asthma, uncomplicated
CPT/HCPCS: 36415; 70487-TC; 70491-TC; 80048; 80053; 82962; 83735; 84443; 85025; 87040; 93005; 93010; 99285-25; C9803; G0480; J1644; Q9967; U0003; U0005

== ENCOUNTER 2022-06-17 22:36 | Inpatient (IN) | payer OTHER ==
[2022-06-17] MEDS ORDERED: ACETAMINOPHEN 1000 MG/100 ML BAG IVPB ONE (23:38)
[2022-06-17] MEDS ORDERED: ONDANSETRON 4 MG/2 ML VIAL IVPUSH ONE (23:38)
[2022-06-17] MEDS ORDERED: LACTATED RINGERS SOLUTION 1,000 ML/1,000 ML INFUS.BAG IV SCH (23:45)
[2022-06-18] MEDS ORDERED: ACETAMINOPHEN INJECTION 100 ML IVPB ONE (00:20)
[2022-06-18] MEDS ORDERED: ONDANSETRON 4 MG/2 ML VIAL ONE (00:20)
[2022-06-18 00:53] LABS: BASO % 0.8 % (0-2.0); EOS % 1.3 % (0-4.5); HEMATOCRIT 39.9 % (32.4-45.2); HEMOGLOBIN 13.6 GM/dL (10.7-15.3); LYMPH % 19.2 % (8-40); MCHC 34.1 g/dl (32.0-36.0); MEAN CELL VOLUME 90.9 fl (80-96); MEAN PLT VOLUME 8.2 fl (7.5-11.1); MONO % 11.7 % (3.8-10.2); PLATELET COUNT 397 10^3/uL (134-434); RBC 4.39 M/mm3 (3.60-5.2); RDW 12.7 % (11.6-15.6); WHITE BLOOD COUNT 10.1 K/mm3 (4.0-10.0)
[2022-06-18 00:59] LABS: INR 1.03 (0.83-1.09); PROTHROMBIN TIME (PATIENT) 11.9 SEC (9.7-13.0)
[2022-06-18 01:02] LABS: ACTIVATED PTT 29.3 SECONDS (25.2-36.5)
[2022-06-18] MEDS: LACTATED RINGERS SOLUTION 1,000 ML/1,000 ML INFUS.BAG IV SCH (01:11)
[2022-06-18 01:14] LABS: ALBUMIN 3.1 g/dl (3.4-5.0); CALCIUM 8.9 mg/dL (8.5-10.1)
[2022-06-18 01:15] LABS: BLOOD UREA NITROGEN 13.1 mg/dL (7-18)
[2022-06-18 01:18] LABS: CREATININE 0.6 mg/dL (0.55-1.3)
[2022-06-18 01:19] LABS: BILIRUBIN,TOTAL 0.2 mg/dL (0.2-1); TOT PROT 7.2 g/dl (6.4-8.2)
[2022-06-18 01:20] LABS: URINE APPEARANCE CLEAR; URINE BILIRUBIN NEGATIVE (NEGATIVE); URINE COLOR YELLOW; URINE GLUCOSE (UA) NEGATIVE (NEGATIVE); URINE KETONE NEGATIVE (NEGATIVE); URINE LEUK ESTERASE NEGATIVE (NEGATIVE); URINE NITRITE NEGATIVE (NEGATIVE); URINE PROTEIN NEGATIVE (NEGATIVE); URINE UROBILINOGEN 0.2 mg/dL (0.2-1.0)
[2022-06-18] MEDS ORDERED: CEFTRIAXONE 1,000 MG in DEXTROSE 5%-WATER - 50 ML IVPB ONE (03:09)
[2022-06-18] MEDS ORDERED: morphine CARPU-JECT 4 MG/1 ML DISP.SYRIN IVPUSH ONE (03:11)
[2022-06-18] MEDS ORDERED: morphine SULFATE 4 MG/ML VIAL ONE ×2 (03:20→06:54)
[2022-06-18] MEDS ORDERED: CEFTRIAXONE 1 GM/50 ML BAG ONE (03:21)
[2022-06-18 06:34] LABS: BASO % 1.5 % (0-2.0); EOS % 1.7 % (0-4.5); HEMATOCRIT 37.3 % (32.4-45.2); HEMOGLOBIN 12.7 GM/dL (10.7-15.3); LYMPH % 24.2 % (8-40); MCH 31.1 pg (25.7-33.7); MCHC 34.1 g/dl (32.0-36.0); MEAN CELL VOLUME 91.2 fl (80-96); MEAN PLT VOLUME 8.3 fl (7.5-11.1); MONO % 11.6 % (3.8-10.2); PLATELET COUNT 380 10^3/uL (134-434); RBC 4.08 M/mm3 (3.60-5.2); RDW 12.9 % (11.6-15.6); WHITE BLOOD COUNT 8.5 K/mm3 (4.0-10.0)
[2022-06-18 06:52] LABS: CALCIUM 8.4 mg/dL (8.5-10.1)
[2022-06-18] MEDS ORDERED: morphine SULFATE 4 MG/ML VIAL IVPUSH PRN (06:52)
[2022-06-18 06:53] LABS: ALBUMIN 2.8 g/dl (3.4-5.0); BLOOD UREA NITROGEN 8.9 mg/dL (7-18)
[2022-06-18] MEDS ORDERED: ONDANSETRON 4 MG/2 ML VIAL IVPUSH PRN (06:53)
[2022-06-18 06:56] LABS: CREATININE 0.4 mg/dL (0.55-1.3)
[2022-06-18 06:57] LABS: BILIRUBIN,TOTAL 0.4 mg/dL (0.2-1); TOT PROT 6.8 g/dl (6.4-8.2)
[2022-06-19 04:55] VITALS: BMI 29.0
[2022-06-19] MEDS ORDERED: CEFTRIAXONE 1 GM in DEXTROSE 5%-WATER - 50 ML IVPB SCH (10:00)
[2022-06-19] MEDS: PIPERACILLIN/TAZOB 4.5 GM 4.5 GM in DEXTROSE 5%-WATER 100 ML IVPB SCH ×2 (14:29→20:10)
[2022-06-19] MEDS: LACTATED RINGERS SOLUTION 1,000 ML/1,000 ML INFUS.BAG IV SCH (14:31)
[2022-06-19 15:42] LABS: BASO % 0.9 % (0-2.0); EOS % 3.2 % (0-4.5); HEMATOCRIT 38.8 % (32.4-45.2); HEMOGLOBIN 13.1 GM/dL (10.7-15.3); LYMPH % 35.2 % (8-40); MCH 30.9 pg (25.7-33.7); MCHC 33.8 g/dl (32.0-36.0); MEAN CELL VOLUME 91.5 fl (80-96); MEAN PLT VOLUME 7.7 fl (7.5-11.1); NEUT % 48.7 % (42.8-82.8); PLATELET COUNT 409 10^3/uL (134-434); RBC 4.24 M/mm3 (3.60-5.2); RDW 12.7 % (11.6-15.6); WHITE BLOOD COUNT 5.9 K/mm3 (4.0-10.0)
[2022-06-19 15:54] LABS: BLOOD UREA NITROGEN 7.6 mg/dL (7-18); CALCIUM 8.5 mg/dL (8.5-10.1)
[2022-06-19 15:58] LABS: CREATININE 0.5 mg/dL (0.55-1.3)
[2022-06-19] MEDS ORDERED: ACETAMINOPHEN 1000 MG/100 ML BAG IVPB ONE (21:14)
[2022-06-20] MEDS: SODIUM CHLORIDE 1,000 ML IV SCH ×2 (02:18→17:05)
[2022-06-20] MEDS: PIPERACILLIN/TAZOB 4.5 GM 4.5 GM in DEXTROSE 5%-WATER 100 ML IVPB SCH ×3 (02:19→17:06)
[2022-06-20 09:31] LABS: HEMATOCRIT 39.4 % (32.4-45.2); HEMOGLOBIN 13.5 GM/dL (10.7-15.3); MCH 31.1 pg (25.7-33.7); MCHC 34.4 g/dl (32.0-36.0); MEAN CELL VOLUME 90.5 fl (80-96); MEAN PLT VOLUME 8.2 fl (7.5-11.1); PLATELET COUNT 438 10^3/uL (134-434); RBC 4.36 M/mm3 (3.60-5.2); RDW 12.8 % (11.6-15.6); WHITE BLOOD COUNT 4.7 K/mm3 (4.0-10.0)
[2022-06-20] MEDS ORDERED: ACETAMINOPHEN 325 MG TABLET (FP) PO PRN (20:32)
[2022-06-21] MEDS: PIPERACILLIN/TAZOB 4.5 GM 4.5 GM in DEXTROSE 5%-WATER 100 ML IVPB SCH ×3 (01:33→18:10)
[2022-06-21] MEDS ORDERED: ACETAMINOPHEN 1000 MG/100 ML BAG IVPB PRN (01:47)
[2022-06-21] MEDS: SODIUM CHLORIDE 1,000 ML IV SCH ×2 (02:20→12:14)
[2022-06-22] MEDS: PIPERACILLIN/TAZOB 4.5 GM 4.5 GM in DEXTROSE 5%-WATER 100 ML IVPB SCH ×3 (02:00→18:05)
[2022-06-22] MEDS: SODIUM CHLORIDE 1,000 ML IV SCH ×2 (06:14→06:15)
[2022-06-22 10:11] LABS: HEMATOCRIT 38.2 % (32.4-45.2); HEMOGLOBIN 12.8 GM/dL (10.7-15.3); MCH 30.7 pg (25.7-33.7); MCHC 33.4 g/dl (32.0-36.0); MEAN CELL VOLUME 91.8 fl (80-96); MEAN PLT VOLUME 8.1 fl (7.5-11.1); PLATELET COUNT 419 10^3/uL (134-434); RBC 4.16 M/mm3 (3.60-5.2); RDW 12.7 % (11.6-15.6); WHITE BLOOD COUNT 6.3 K/mm3 (4.0-10.0)
[2022-06-22 10:42] LABS: CALCIUM 8.7 mg/dL (8.5-10.1)
[2022-06-22 10:43] LABS: BLOOD UREA NITROGEN 6.3 mg/dL (7-18)
[2022-06-22 10:47] LABS: CREATININE 0.5 mg/dL (0.55-1.3); TOT PROT 6.6 g/dl (6.4-8.2)
[2022-06-22 10:48] LABS: BILIRUBIN,TOTAL 0.3 mg/dL (0.2-1)
[2022-06-22 15:49] VITALS: BP 122/72; PULSE 64; RESP 18; TEMP 98
== END 2022-06-22 18:45 | disposition home or self-care (01) | DRG 392 ==
LOC: JER 22:36 → JERBED 06-18 03:08 → J8W 06-18 21:13
PROVIDERS: ADMIT Family Medicine; ATTEND Family Medicine
DX: K57.92 Diverticulitis of intestine, part unspecified, without perforation or abscess without bleeding (principal); I10 Essential (primary) hypertension; E11.9 Type 2 diabetes mellitus without complications; K21.9 Gastro-esophageal reflux disease without esophagitis; D25.9 Leiomyoma of uterus, unspecified
CPT/HCPCS: 36415; 71045-TC-FY; 74177-TC; 80048; 80053; 81003; 82962; 83036; 83605; 83690; 83735; 85025; 85027; 85610; 85730; 86140; 87086; 93005; 93010; 99291; C9803-CS; Q9967; U0003; U0005

== ENCOUNTER 2022-07-12 05:29 | Day surgery (SDC) | payer OTHER ==
[2022-07-12] MEDS ORDERED: KETAMINE HCL 200 MG/20 ML VIAL ONE (07:21)
[2022-07-12 07:49] VITALS: BMI 29.5
[2022-07-12 08:35] VITALS: TEMP 98
[2022-07-12 10:20] VITALS: BP 115/64; PULSE 57; RESP 15
== END 2022-07-12 09:45 | disposition home or self-care (01) ==
LOC: JASU-ENDO 05:29
PROVIDERS: ATTEND Internal Medicine Gastroenterology
PROC: 0DB78ZX Excision of Stomach, Pylorus, Via Natural or Artificial Opening Endoscopic, Diagnostic (ICD-10-PCS; 2022-07-12)
PROC: 0DB68ZX Excision of Stomach, Via Natural or Artificial Opening Endoscopic, Diagnostic (ICD-10-PCS; 2022-07-12)
PROC: 0DB98ZX Excision of Duodenum, Via Natural or Artificial Opening Endoscopic, Diagnostic (ICD-10-PCS; principal; 2022-07-12 08:00)
DX: K21.00 Gastro-esophageal reflux disease with esophagitis, without bleeding (principal); K44.9 Diaphragmatic hernia without obstruction or gangrene; K25.9 Gastric ulcer, unspecified as acute or chronic, without hemorrhage or perforation; K31.7 Polyp of stomach and duodenum; K29.50 Unspecified chronic gastritis without bleeding; E11.9 Type 2 diabetes mellitus without complications; I10 Essential (primary) hypertension
CPT/HCPCS: 82962; 88305-TC; 88341-TC; 88342-TC

== ENCOUNTER 2025-04-04 10:44 | Emergency (ER) | payer OTHER ==
[2025-04-04 10:53] VITALS: RESP 18; TEMP 98.6; BMI 32.8
[2025-04-04] MEDS ORDERED: ACETAMINOPHEN INJECTION 100 ML ONE (12:48)
[2025-04-04 13:03] LABS: ABSOLUTE IMMATURE GRANULOCYTES 0.03 x10^3/uL (0.0-0.031); BASOPHILS # 0.03 x10^3/uL (0.01-0.08); EOSINOPHIL % 1.3 % (0.7-5.8); EOSINOPHILS # 0.11 x10^3/uL (0.04-0.36); HEMOGLOBIN 14.2 g/dL (11.2-15.7); MEAN CELL VOLUME 93.5 fl (79.4-94.8); MEAN PLT VOLUME 10.5 fl (9.4-12.3); MONOCYTE # 0.98 x10^3/uL (0.24-0.86); PLATELET COUNT 392 x10^3/uL (182-369)
[2025-04-04 13:05] LABS: PH,URINE 5.5 (5.0-8.0); URINE APPEARANCE CLEAR; URINE BILIRUBIN NEGATIVE (NEGATIVE); URINE COLOR YELLOW; URINE GLUCOSE (UA) NEGATIVE (NEGATIVE); URINE KETONE TRACE (NEGATIVE); URINE LEUK ESTERASE NEGATIVE (NEGATIVE); URINE NITRITE NEGATIVE (NEGATIVE); URINE PROTEIN NEGATIVE (NEGATIVE); URINE UROBILINOGEN 0.2 mg/dL (0.2-1.0)
[2025-04-04 13:10] LABS: INR 1.01 (0.83-1.09); PROTHROMBIN TIME (PATIENT) 11.1 SEC (9.7-13.0)
[2025-04-04] MEDS: ACETAMINOPHEN 1000 MG/100 ML BAG IVPB ONE (13:34)
[2025-04-04] MEDS: MAG HYDROX/AL HYDROX/SIMETH 30 ML UNIT-DOSE CUP PO ONE (13:35)
[2025-04-04] MEDS: LACTATED RINGERS SOLUTION 1000 ML INFUS.BAG IV ONE (13:35)
[2025-04-04] MEDS ORDERED: MAG HYDROX/AL HYDROX/SIMETH 30 ML UNIT-DOSE CUP ONE (13:36)
[2025-04-04 13:59] LABS: POTASSIUM 4.4 mmol/L (3.5-5.1)
[2025-04-04 14:02] LABS: CALCIUM 9.5 mg/dL (8.5-10.1)
[2025-04-04 14:03] LABS: ALBUMIN 3.3 g/dl (3.4-5.0); BLOOD UREA NITROGEN 9.5 mg/dL (7-18); MAGNESIUM 2.1 mg/dL (1.8-2.4)
[2025-04-04 14:06] LABS: CREATININE 0.5 mg/dL (0.55-1.3)
[2025-04-04 14:07] LABS: BILIRUBIN,TOTAL 0.6 mg/dL (0.2-1)
[2025-04-04 14:08] LABS: TOT PROT 7.1 g/dl (6.4-8.2)
[2025-04-04 17:41] VITALS: BP 124/88; PULSE 87
== END 2025-04-04 17:45 | disposition home or self-care (01) ==
LOC: JER 10:44
PROC: 3E033NZ Introduction of Analgesics, Hypnotics, Sedatives into Peripheral Vein, Percutaneous Approach (ICD-10-PCS; principal; 2025-04-04)
DX: K57.32 Diverticulitis of large intestine without perforation or abscess without bleeding (principal); K59.00 Constipation, unspecified; R10.32 Left lower quadrant pain; R63.8 Other symptoms and signs concerning food and fluid intake
CPT/HCPCS: 36415; 74177-TC; 80053; 81003; 83690; 83735; 85025; 85610; 85730; 86850; 86900; 86901; 87086; 93005; 93010; 96374; 99285-25